=== PATIENT | female | born 1945 | race Caucasian/White ===

== ENCOUNTER → 2016-12-18 | Outpatient (REF) | payer MEDICARE ==
[~2016-12-18] MED LIST: /PANT40TA OR; ACET65TA OR; IBUP-1114 PO; LEVO25TA5 PO; OMEP20CA3 PO; PREV30TA OR; RELAFEN OR; SERT-141 PO; TRAZ50TA4 PO; VITA100072 PO; ZOLO50TA OR; [UNRECOGNIZED DRUG - CODE] PO
[2016-12-18 16:29] LABS: FREE T4 0.34 NG/DL (0.76-1.46)
== END ==
LOC: M LABDRAW1 15:20
PROVIDERS: ATTEND Internal Medicine Endocrinology, Diabetes & Metabolism
DX: E05.10 Thyrotoxicosis with toxic single thyroid nodule without thyrotoxic crisis or storm (principal)

== ENCOUNTER → 2017-02-09 | Outpatient (CLI) | payer MEDICARE ==
[~2017-02-09] MED LIST changes: -SERT-141 PO; +SERT50TA PO
[2017-02-09 18:10] LABS: FREE T4 1.5 NG/DL (0.76-1.46)
== END ==
LOC: M WUC 15:09
PROVIDERS: ATTEND Internal Medicine Endocrinology, Diabetes & Metabolism
DX: E89.0 Postprocedural hypothyroidism (principal)

== ENCOUNTER → 2017-03-17 | Outpatient (CLI) | payer MEDICARE ==
--- NOTE | 2017-03-17 17:16 | REP ---
PA and lateral chest: Comparisons are the PA and lateral chest dated 02/25/[address] of the abdomen and pelvis dated 01/01/2014 that includes the lower chest. There is a large right epicardial fat pad obscuring the right cardiac border, unchanged from all prior studies including the CT. The lung freedman are clear and unchanged. Cardiac size is normal. The jayden, mediastinum, and bony thorax are unremarkable. Impression: There are no acute cardiopulmonary findings. There is a large right epicardial fat pad. Signed by Gregg Yusuf MD 03/17/2017 05:07 P
== END ==
LOC: M WUC 16:28
PROVIDERS: ATTEND Physician Assistant
DX: J20.9 Acute bronchitis, unspecified (principal)

== ENCOUNTER → 2017-03-22 | Emergency (ER) | payer MEDICARE ==
[~2017-03-22] VITALS: Ht 157.5 cm; Wt 61.2 kg
[2017-03-22 12:56] VITALS: BP 131/78
== END | disposition left against medical advice (07) ==
LOC: M ED 13:33
DX: R05 Cough (principal); Z53.29 Procedure and treatment not carried out because of patient's decision for other reasons

== ENCOUNTER → 2017-04-11 | Outpatient (CLI) | payer MEDICARE ==
[2017-04-11 18:21] LABS: FREE T4 1.27 NG/DL (0.76-1.46)
== END ==
LOC: M WUC 15:03
PROVIDERS: ATTEND Physician Assistant Medical
DX: E89.0 Postprocedural hypothyroidism (principal)

== ENCOUNTER → 2017-06-26 | Outpatient (CLI) | payer MEDICARE ==
[~2017-06-26] MED LIST changes: +CYCL10TA PO; +D32000CA PO; +IBUP-1022 PO; +LEVO88TA3; +OMEP40CA2; +SERT-138; +TRAZ50TA11 PO; -TRAZ50TA4 PO; +XIID5DRO; -[UNRECOGNIZED DRUG - CODE] PO
[2017-06-26 19:36] LABS: FREE T4 1.06 NG/DL (0.76-1.46)
== END ==
LOC: M WUC 14:48
PROVIDERS: ATTEND Internal Medicine Endocrinology, Diabetes & Metabolism
DX: E89.0 Postprocedural hypothyroidism (principal)

== ENCOUNTER 2017-07-18 11:43 | Emergency (ER) | payer MEDICARE ==
[~2017-07-18] VITALS: Ht 160 cm; Wt 61.3 kg
[~2017-07-18 11:43] MED LIST changes: -CYCL10TA PO; -IBUP-1022 PO; -LEVO88TA3; -OMEP40CA2; -SERT-138; -XIID5DRO
[2017-07-18] MEDS ORDERED: OMEP40CA2 (11:51)
[2017-07-18] MEDS ORDERED: LEVO88TA3 (11:51)
[2017-07-18] MEDS ORDERED: XIID5DRO (11:51)
[2017-07-18] MEDS ORDERED: SERT-138 (11:51)
[2017-07-18] MEDS ORDERED: PERCOCET 5MG/325MG TAB PO ONE (14:45)
--- NOTE | 2017-07-18 15:15 | REP ---
CT Head without contrast HISTORY: Fall COMPARISON: None There is no intraparenchymal hemorrhage, acute infarct, mass or midline shift. The ventricular system and cortical sulci are dilated consistent with minimal volume loss. There is no extra cerebral collection. There is no fracture. The visualized sinuses are clear. IMPRESSION: Minimal volume loss. Signed by Nahum Tee MD 07/18/2017 03:07 P
--- NOTE | 2017-07-18 15:28 | REP ---
CT CERVICAL SPINE WITHOUT CONTRAST: HISTORY: Fall. There is no acute fracture or subluxation. Disc bulges are present at the C2-3 and C3-4 levels. Disc bulges with associated osteophyte formation are present at the C4-5 and C5-6 levels. There is minimal narrowing of the spinal canal. Uncinate process hypertrophy is present at the C3-4 through C5-6 levels. This produces minimal to mild narrowing of the neural foramina. The C4-5 and C5-6 intervertebral discs are decreased in height consistent with disc degeneration. IMPRESSION: 1. There is no acute fracture or subluxation. 2. There is cervical spondylosis at the C2-3 through C5-6 levels. Signed by Nahum Tee MD 07/18/2017 03:40 P
[2017-07-18] MEDS ORDERED: CYCL10TA PO (15:36)
[2017-07-18] MEDS ORDERED: IBUP-1022 PO (15:36)
--- NOTE | 2017-07-18 15:37 | REP ---
CT THORACIC SPINE WITHOUT CONTRAST: HISTORY: Fall. There is no acute fracture or subluxation. There is no definite disc bulge or herniation. The spinal canal and neural foramina are patent. The intervertebral discs are normal in height. A 2.5 cm hypodensity is present in the right lobe of the liver. A second hypodensity is only partly seen. These most likely represent cysts. IMPRESSION: 1. There is no acute fracture or subluxation. 2. There are two hypodensities in the liver that may represents cysts. Ultrasound may be helpful for further evaluation. Signed by Nahum Tee MD 07/18/2017 03:40 P
[2017-07-18 15:47] VITALS: BP 134/63
--- NOTE | 2017-07-21 10:25 | ED PDOC ---
Post-Departure Follow-Up lisa myers faxed formal report of ct t spine for fu Davida Harry MD Jul 21, 2017 10:25
== END 2017-07-18 15:57 | disposition home or self-care (01) ==
LOC: M ED 11:43
DX: S13.4XXA Sprain of ligaments of cervical spine, initial encounter (principal); W06.XXXA Fall from bed, initial encounter; Y92.099 Unspecified place in other non-institutional residence as the place of occurrence of the external cause; Y93.9 Activity, unspecified; Y99.9 Unspecified external cause status; M47.892 Other spondylosis, cervical region; K76.9 Liver disease, unspecified; Z79.899 Other long term (current) drug therapy; Z91.010 Allergy to peanuts; Z88.2 Allergy status to sulfonamides; Z88.8 Allergy status to other drugs, medicaments and biological substances

== ENCOUNTER → 2017-10-15 | Outpatient (CLI) | payer MEDICARE ==
[~2017-10-15] MED LIST changes: +CYCL10TA PO; +IBUP-1022 PO; +LEVO88TA3; +OMEP40CA2; +SERT-138; +XIID5DRO
[2017-10-15 17:17] LABS: ALBUMIN 3.8 GM/DL (3.2-5.2); ALBUMIN/GLOBULIN RATIO 1.36 (1.00-1.93); ALKALINE PHOSPHATASE 102 U/L (45-117); ALT/SGPT 17 U/L (12-78); ANION GAP 6 MEQ/L (8-16); AST/SGOT 13 U/L (7-37); BILIRUBIN,DIRECT 0.1 MG/DL (0.0-0.2); BILIRUBIN,TOTAL 0.4 MG/DL (0.2-1.0); BLOOD UREA NITROGEN 16 MG/DL (7-18); CALCIUM LEVEL 8.6 MG/DL (8.8-10.2); CARBON DIOXIDE LEVEL 30 MEQ/L (21-32); CHLORIDE LEVEL 106 MEQ/L (98-107); CREATININE FOR GFR 0.95 MG/DL (0.55-1.02); GLOMERULAR FILTRATION RATE > 60.0 (>39); GLUCOSE, FASTING 139 MG/DL (83-110); PHOSPHORUS LEVEL 3.2 MG/DL (2.5-4.9); POTASSIUM SERUM 3.6 MEQ/L (3.5-5.1); SODIUM LEVEL 142 MEQ/L (136-145); TOTAL PROTEIN 6.6 GM/DL (6.4-8.2)
[2017-10-15 17:25] LABS: MEAN CORPUSCULAR HGB CONC 36.9 g/dl (32.0-36.5); MEAN CORPUSCULAR VOLUME 92.2 fl (80.0-96.0); PLATELET COUNT, AUTOMATED 201 10^3/uL (150-450); RED CELL DISTRIBUTION WIDTH 14.2 % (11.5-14.5); WHITE BLOOD COUNT 6.5 10^3/uL (4.0-10.0)
== END ==
LOC: M WUC 14:12
PROVIDERS: ATTEND Podiatrist Foot & Ankle Surgery
DX: B35.1 Tinea unguium (principal); Z79.899 Other long term (current) drug therapy

== ENCOUNTER → 2017-11-20 | Outpatient (CLI) | payer MEDICARE ==
[2017-11-20 18:29] LABS: FREE T4 1.15 NG/DL (0.76-1.46)
== END ==
LOC: M WUC 13:57
PROVIDERS: ATTEND Nurse Practitioner Family
DX: E89.0 Postprocedural hypothyroidism (principal); B35.1 Tinea unguium; Z51.81 Encounter for therapeutic drug level monitoring; Z79.899 Other long term (current) drug therapy

== ENCOUNTER → 2017-11-20 | Outpatient (CLI) | payer MEDICARE ==
[2017-11-20 17:16] LABS: ALBUMIN 3.9 GM/DL (3.2-5.2); ALBUMIN/GLOBULIN RATIO 1.44 (1.00-1.93); ALKALINE PHOSPHATASE 104 U/L (45-117); ALT/SGPT 16 U/L (12-78); ANION GAP 5 MEQ/L (8-16); AST/SGOT 12 U/L (7-37); BILIRUBIN,DIRECT < 0.1 MG/DL (0.0-0.2); BILIRUBIN,TOTAL 0.4 MG/DL (0.2-1.0); BLOOD UREA NITROGEN 14 MG/DL (7-18); CALCIUM LEVEL 8.5 MG/DL (8.8-10.2); CARBON DIOXIDE LEVEL 31 MEQ/L (21-32); CHLORIDE LEVEL 108 MEQ/L (98-107); CREATININE FOR GFR 0.93 MG/DL (0.55-1.02); GLOMERULAR FILTRATION RATE > 60.0 (>39); GLUCOSE, FASTING 93 MG/DL (83-110); PHOSPHORUS LEVEL 3.5 MG/DL (2.5-4.9); POTASSIUM SERUM 3.8 MEQ/L (3.5-5.1); SODIUM LEVEL 144 MEQ/L (136-145); TOTAL PROTEIN 6.6 GM/DL (6.4-8.2)
[2017-11-20 18:09] LABS: MEAN CORPUSCULAR HEMOGLOBIN 28.4 pg (27.0-33.0); MEAN CORPUSCULAR HGB CONC 32.4 g/dl (32.0-36.5); MEAN CORPUSCULAR VOLUME 87.5 fl (80.0-96.0); PLATELET COUNT, AUTOMATED 192 10^3/uL (150-450); RED CELL DISTRIBUTION WIDTH 13.9 % (11.5-14.5)
[2017-11-20 18:11] LABS: WHITE BLOOD COUNT 6.5 10^3/uL (4.0-10.0)
== END ==
LOC: M WUC 13:54
PROVIDERS: ATTEND Podiatrist Foot & Ankle Surgery
DX: B35.1 Tinea unguium (principal); Z51.81 Encounter for therapeutic drug level monitoring; Z79.899 Other long term (current) drug therapy

== ENCOUNTER → 2018-01-24 | Outpatient (REF) | payer MEDICARE | LOC: M LAB REF 12:27 | DX: C44.519 Basal cell carcinoma of skin of other part of trunk (principal) | CPT/HCPCS: 88305 ==

== ENCOUNTER → 2018-03-07 | Outpatient (CLI) | payer MEDICARE ==
[2018-03-07 13:01] LABS: BASO % 0.5 % (0.0-1.0); EOS # 0.1 10^3/uL (0.0-0.50); EOS % 1.6 % (0.0-3.0); HEMATOCRIT 35.8 % (36.0-47.0); HEMOGLOBIN 13.4 g/dl (12.0-15.5); IMMATURE GRANULOCYTE % 0.3 % (0-3.0); LYMPH # 1.4 10^3/uL (1.5-4.5); LYMPH % 23.9 % (24.0-44.0); MEAN CORPUSCULAR HEMOGLOBIN 34.4 pg (27.0-33.0); MEAN CORPUSCULAR HGB CONC 37.4 g/dl (32.0-36.5); MEAN CORPUSCULAR VOLUME 91.8 fl (80.0-96.0); MONO # 0.5 10^3/uL (0.0-0.8); MONO % 7.8 % (0.0-5.0); NEUTROPHILS # 3.8 10^3/uL (1.8-7.7); NEUTROPHILS % 65.9 % (36.0-66.0); PLATELET COUNT, AUTOMATED 183 10^3/uL (150-450); WHITE BLOOD COUNT 5.8 10^3/uL (4.0-10.0)
[2018-03-07 13:23] LABS: VITAMIN B12 LEVEL > 2000 PG/ML (247-911)
[2018-03-07 13:30] LABS: ALBUMIN/GLOBULIN RATIO 1.29 (1.00-1.93); ALKALINE PHOSPHATASE 92 U/L (45-117); ALT/SGPT 16 U/L (12-78); ANION GAP 7 MEQ/L (8-16); AST/SGOT 11 U/L (7-37); BILIRUBIN,TOTAL 0.7 MG/DL (0.2-1.0); BLOOD UREA NITROGEN 16 MG/DL (7-18); CARBON DIOXIDE LEVEL 28 MEQ/L (21-32); CHLORIDE LEVEL 106 MEQ/L (98-107); CHOLESTEROL LEVEL 225 MG/DL (<200); CHOLESTEROL RISK RATIO 3.571 (<5); CREATININE FOR GFR 0.91 MG/DL (0.55-1.30); GLOMERULAR FILTRATION RATE > 60.0 (>39); GLUCOSE, FASTING 96 MG/DL (70-100); HDL CHOLESTEROL 63 MG/DL (>40); IRON (FE) 118 UG/DL (50-170); LDL CHOLESTEROL 142.6 MG/DL (<100); NON-HDL-C 162 MG/DL; POTASSIUM SERUM 4.2 MEQ/L (3.5-5.1); SODIUM LEVEL 141 MEQ/L (136-145); TOTAL PROTEIN 7.1 GM/DL (6.4-8.2); TRIGLYCERIDES LEVEL 97 MG/DL (<150)
== END ==
LOC: M WUC 09:36
DX: K21.9 Gastro-esophageal reflux disease without esophagitis (principal); D50.9 Iron deficiency anemia, unspecified; E53.8 Deficiency of other specified B group vitamins; Z13.220 Encounter for screening for lipoid disorders
CPT/HCPCS: 83540

== ENCOUNTER → 2018-05-22 | Outpatient (CLI) | payer MEDICARE ==
[2018-05-22 17:25] LABS: FREE T4 1.26 NG/DL (0.76-1.46)
[2018-05-22 17:25] LABS: THYROID STIMULATING HORMONE 0.083 uIU/ML (0.358-3.740)
== END ==
LOC: M WUC 15:37
DX: E89.0 Postprocedural hypothyroidism (principal)
CPT/HCPCS: 84443

== ENCOUNTER → 2018-09-11 | Outpatient (CLI) | payer MEDICARE ==
[2018-09-11 20:47] LABS: FREE T4 0.89 NG/DL (0.76-1.46)
== END ==
LOC: M WUC 16:13
DX: E89.0 Postprocedural hypothyroidism (principal)
CPT/HCPCS: 84443

== ENCOUNTER → 2019-01-15 | Outpatient (CLI) | payer MEDICARE ==
[~2019-01-15] MED LIST changes: +TRAZ-160 PO; -TRAZ50TA11 PO
[2019-01-15 17:35] LABS: FREE T4 1.27 NG/DL (0.76-1.46); THYROID STIMULATING HORMONE 0.384 uIU/ML (0.358-3.740)
== END ==
LOC: M WUC 14:20
PROVIDERS: ATTEND Nurse Practitioner Family
DX: E89.0 Postprocedural hypothyroidism (principal)

== ENCOUNTER → 2019-03-26 | Outpatient (REF) | payer MEDICARE ==
[~2019-03-26] MED LIST changes: -/PANT40TA OR; +PROT1TAB2 OR; +SERT-141 PO; -SERT50TA PO; +VITA100018 PO; -VITA100072 PO
[2019-03-26 21:27] LABS: ALBUMIN 4.2 GM/DL (3.2-5.2); ALT/SGPT 14 U/L (12-78); BILIRUBIN,TOTAL 0.5 MG/DL (0.2-1.0); BLOOD UREA NITROGEN 20 MG/DL (7-18); CALCIUM LEVEL 8.6 MG/DL (8.8-10.2); CARBON DIOXIDE LEVEL 29 MEQ/L (21-32); CHLORIDE LEVEL 106 MEQ/L (98-107); CREATININE FOR GFR 0.92 MG/DL (0.55-1.30); GLOMERULAR FILTRATION RATE > 60.0 (>39); GLUCOSE, FASTING 71 MG/DL (70-100); IRON (FE) 71 UG/DL (50-170); POTASSIUM SERUM 4.1 MEQ/L (3.5-5.1); SODIUM LEVEL 141 MEQ/L (136-145); TOTAL PROTEIN 6.6 GM/DL (6.4-8.2)
[2019-03-26 21:37] LABS: VITAMIN B12 LEVEL 739 PG/ML (247-911)
[2019-03-26 21:53] LABS: BASO # 0.1 10^3/uL (0.0-0.2); BASO % 0.8 % (0.0-1.0); EOS # 0.1 10^3/uL (0.0-0.50); EOS % 1.4 % (0.0-3.0); HEMATOCRIT 39.2 % (36.0-47.0); HEMOGLOBIN 12.5 g/dl (12.0-15.5); LYMPH # 1.8 10^3/uL (1.5-4.5); LYMPH % 24.3 % (24.0-44.0); MEAN CORPUSCULAR HEMOGLOBIN 27.9 pg (27.0-33.0); MEAN CORPUSCULAR HGB CONC 31.9 g/dl (32.0-36.5); MEAN CORPUSCULAR VOLUME 87.5 fl (80.0-96.0); MONO # 0.7 10^3/uL (0.0-0.8); MONO % 9.5 % (0.0-5.0); NEUTROPHILS # 4.7 10^3/uL (1.8-7.7); NEUTROPHILS % 63.9 % (36.0-66.0); PLATELET COUNT, AUTOMATED 191 10^3/uL (150-450); RED BLOOD COUNT 4.48 10^6/uL (4.00-5.40); WHITE BLOOD COUNT 7.3 10^3/uL (4.0-10.0)
== END ==
LOC: M WUC 20:09
PROVIDERS: ATTEND Nurse Practitioner Family
DX: D50.9 Iron deficiency anemia, unspecified (principal); E53.8 Deficiency of other specified B group vitamins; E03.9 Hypothyroidism, unspecified

== ENCOUNTER → 2019-06-25 | Outpatient (CLI) | payer MEDICARE ==
[~2019-06-25] MED LIST changes: +ACET500T15 PO; +LEVO75TA4 PO; -OMEP20CA3 PO; +OMEP20CA4 PO; -TRAZ-160 PO; +TRAZ-252 PO
--- NOTE | 2019-06-25 09:51 | ECGEPIP ---
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
[2019-06-25 11:44] LABS: FREE T4 1.23 NG/DL (0.76-1.46); THYROID STIMULATING HORMONE 0.342 uIU/ML (0.358-3.740)
== END ==
LOC: M LAB 09:21
PROVIDERS: ATTEND Internal Medicine Endocrinology, Diabetes & Metabolism
DX: E89.0 Postprocedural hypothyroidism (principal); M16.11 Unilateral primary osteoarthritis, right hip

== ENCOUNTER → 2019-06-25 | Outpatient (CLI) | payer MEDICARE ==
--- NOTE | 2019-06-25 11:00 | REP ---
Clinical: Preoperative assessment. Right hip arthroplasty. Comparison: 03/17/2017 . Technique: PA and lateral. Findings: The mediastinum and cardiac silhouette are normal. The lung freedman demonstrate stable chronic changes without acute consolidation, effusion, or pneumothorax. The skeletal structures are intact and normal. Impression: 1. No acute cardiopulmonary process. Electronically Signed by Aidan Fu MD 06/25/2019 10:15 A
[2019-06-25 11:32] LABS: INR 0.98; PROTHROMBIN TIME 12.7 SECONDS (11.8-14.0)
[2019-06-25 11:42] LABS: ALBUMIN 3.7 GM/DL (3.2-5.2); ALT/SGPT 14 U/L (12-78); BILIRUBIN,TOTAL 0.4 MG/DL (0.2-1.0); BLOOD UREA NITROGEN 14 MG/DL (7-18); CARBON DIOXIDE LEVEL 29 MEQ/L (21-32); CHLORIDE LEVEL 111 MEQ/L (98-107); CREATININE FOR GFR 0.86 MG/DL (0.55-1.30); GLOMERULAR FILTRATION RATE > 60.0 (>39); GLUCOSE, FASTING 86 MG/DL (70-100); POTASSIUM SERUM 4.2 MEQ/L (3.5-5.1); SODIUM LEVEL 145 MEQ/L (136-145); TOTAL PROTEIN 6.7 GM/DL (6.4-8.2)
[2019-06-25 12:05] LABS: HEMATOCRIT 38.8 % (36.0-47.0); HEMOGLOBIN 12.4 g/dl (12.0-15.5); MEAN CORPUSCULAR HEMOGLOBIN 28.1 pg (27.0-33.0); MEAN CORPUSCULAR VOLUME 87.8 fl (80.0-96.0); PLATELET COUNT, AUTOMATED 180 10^3/uL (150-450); RED BLOOD COUNT 4.42 10^6/uL (4.00-5.40); WHITE BLOOD COUNT 5.3 10^3/uL (4.0-10.0)
[2019-06-25 12:32] LABS: ERYTHROCYTE SEDIMENTATION RATE 30 mm/hr (0-30)
== END ==
LOC: M LAB 09:13
PROVIDERS: ATTEND Family Medicine
DX: M16.11 Unilateral primary osteoarthritis, right hip (principal)

== ENCOUNTER 2019-07-08 07:30 | Inpatient (IN) | payer MEDICARE ==
--- NOTE | 2019-07-03 16:21 | HPE ---
DATE OF ADMISSION: 07/08/2019 HISTORY OF PRESENT ILLNESS: This is a pleasant 73-year-old female with continuing symptomatic right hip osteoarthritis. She has consented for right total hip arthroplasty per Dr. Tate Rand. Medical optimization was performed by Dr. Horton on 07/02/2019, which we are awaiting his clearance documentation. The patient reports that she was cleared, although there was some information missing that Dr. Horton would normally like to see. She is going to try and coordinate the rest of that. She expressed concern about a right upper tooth which Dr. Manzanares evaluated for a filling that fell out. The patient denies any pain with the tooth, but was put on a antibiotic, namely amoxicillin 875 mg two by mouth three times a day. She otherwise feels well. Her x-rays were consistent with advanced osteoarthritis. ALLERGIES: SULFAs, COMPAZINE, cashews. CURRENT MEDICATIONS: Include: - amoxicillin 875 mg two by mouth three times a day - levothyroxine sodium 25 mcg - vitamin D3 super strength 2000 units - vitamin B12 100 mcg - aspirin 81 low-dose MEDICAL PROBLEM LIST: Includes: 1. Symptomatic right hip osteoarthritis. 2. Anxiety. 3. Hypercholesteremia. 4. Thyroid disease. 5. Depression. 6. Question of stroke. PAST SURGICAL HISTORY: Appendectomy, cholecystectomy, total hysterectomy, knee arthroscopy, and cataract removal. FAMILY HISTORY: Father - hypertension, hypercholesteremia, heart disease, cancer, and diabetes. SOCIAL HISTORY: She has never smoked and occasionally consumes alcohol. Denies illicit drugs. REVIEW OF SYSTEMS: Denies chest pain, shortness of breath, dyspnea on exertion, fever, chills, malaise, upper respiratory or urinary tract symptoms. She is denying any dental discomfort. LABORATORY DATA: Reviewed from 06/27/2019 show chloride level 111, anion gap 5, thyroid stimulating hormone 0.324. Via [facility] I was able to observe CBC which shows normalized white count at 5.3, RBC 4.42, hemoglobin 12.4, hematocrit this 38.8, MCV 87.8, MCH 28.1, MCHC 32.0. RDW 14.4, platelet 180. Sedimentation rate 30. EKG results per Dr. Froy Martinez were read sinus bradycardia, possible right ventricular conduction delay, possible anterior myocardial infarction probably old. Nonspecific T-wave abnormality. Those were the labs made available to me. Chest x-ray shows mediastinum and cardiac silhouette are normal. Lung freedman demonstrate stable chronic changes without acute consolidation, effusion or pneumothoraxes read by Dr. Fu. PHYSICAL EXAMINATION: Vital signs: Height 60 inches, weight 143.0, temperature 99.5, pulse 76, respiration 18, blood pressure 120/70. She is a pleasant, well-developed, well-nourished, 73-year-old female in no acute distress, alert, oriented times three. Mood and affect are appropriate. She is ambulating without overt antalgia, she is favoring her left side. Right hip range of motion is limited and irritable through range. Bilateral lower extremities are supple, soft, nontender. Skin is intact. Benign noninfectious looking. Bowels soft, nontender times four. Chest rises symmetrically. Regular rate and rhythm. Lungs clear to auscultation. Neck supple. Negative JVD or bruits. IMPRESSION: 1. Right hip symptomatic osteoarthritis. 2. The patient consented for right total hip arthroplasty per Dr. Tate Rand. 3. Medical optimization was performed by Dr. Horton on 07/02/2019, which we are awaiting his clearance note. 4. On-call the OR 2 grams IV Kefzol in OR. 5. SCD and TEDs in OR. 6. The patient reports being put on amoxicillin 875mg two by mouth three times a day per Dr. Manzanares. She denies dental pain. Patient states Dr. Manzanares okayed proceeding with procedure, but at some point she will need a root canal. Dr. Manzanares spoke with our surgical services coordinator stating that she was fine to move forward with the procedure. [facility]
[~2019-07-08] VITALS: Ht 160 cm; Wt 63.5 kg
[~2019-07-08 07:30] MED LIST changes: +OMEP1CAP73 PO; -OMEP20CA4 PO; -OMEP40CA2; +OMEP40CA97
[2019-07-08] MEDS ORDERED: LR 1,000 ML IV SCH ×3 (12:30→17:30)
[2019-07-08] MEDS ORDERED: MIDAZOLAM INJ 2 MG/2 ML VIAL (J2250) As Ordered ONE (12:36)
[2019-07-08] MEDS ORDERED: propofoL 200 MG/20 ML VIAL As Ordered ONE ×2 (12:37→16:20)
[2019-07-08] MEDS ORDERED: ONDANSETRON 4MG/2ML VIAL (J2405) As Ordered ONE (12:37)
[2019-07-08] MEDS ORDERED: LIDOCAINE 2% INJ 100 MG/5 ML SDV (FOR ANES.) As Ordered ONE (12:37)
[2019-07-08] MEDS ORDERED: fentaNYL 100 MCG/2 ML INJECTION (J3010) As Ordered ONE ×2 (12:37→17:04)
[2019-07-08] MEDS ORDERED: ceFAZolin SOD 2 GM in IV 1 EA IV ONE (13:00)
[2019-07-08] MEDS ORDERED: ACETAMINOPHEN 500 MG TAB PO ONE (13:00)
[2019-07-08] MEDS ORDERED: TRANEXAMIC ACID 100 MG/ML 10ML VIAL As Ordered ONE (14:00)
[2019-07-08] MEDS ORDERED: EPINEPHrine INJ 1 MG/ML 1ML VIAL As Ordered ONE (14:01)
[2019-07-08] MEDS ORDERED: ceFAZolin 1GM INJ (J0690 PER 500MG) As Ordered ONE (14:01)
[2019-07-08] MEDS ORDERED: BUPIVACAINE/DEXTROSE 0.75% 2 ML AMP As Ordered ONE (15:22)
[2019-07-08] MEDS ORDERED: ACETAMINOPHEN 1000MG 100ML IV BTL (OFIRMEV) (J0131 PER 10MG) As Ordered ONE (15:23)
[2019-07-08] MEDS ORDERED: ePHEDrine SULFATE 25 MG/5 ML(5MG/ML) SYRINGE As Ordered ONE (15:54)
[2019-07-08] MEDS: fentaNYL 100 MCG/2 ML INJECTION (J3010) IV PRN ×4 (17:10→18:00)
--- NOTE | 2019-07-08 17:12 | CR.PDOC ---
General Date of Consultation: Jul 08, 2019 Referring Provider: Graham Rand Attending Physician: ERASMO KING MD Consultation REASON FOR CONSULTATION/CHIEF COMPLAINT: Medical management. HISTORY OF PRESENT ILLNESS: This is 73 years old female with past medical history of right hip osteoarthritis, anxiety, hyperlipidemia, , hypothyroid, depression, had a right total hip arthroplasty done today and patient is being transferred to medical floor from recurrent room for further care including physical therapy. We'll been called for medical management of this secondary to multiple medical problems. ALLERGIES: Please see below. HOME MEDICATIONS: Please see below. PAST MEDICAL HISTORY: Right hip osteoarthritis, anxiety disorder, hyperlipidemia, hypothyroidism, depression, questionable CVA. PAST SURGICAL HISTORY: Appendectomy, cholecystectomy, total hysterectomy, knee arthroscopy and cataract removal FAMILY HISTORY: Father: , Hypertension, hyperlipidemia, heart disease, cancer and diabetes mellitus Mother: Negative Siblings: Negative Children: Negative Hereditary Diseases: Negative Unexpected deaths due to medical reasons: Negative SOCIAL HISTORY: Marital status and/or living arrangements: Lives alone. Nonsmoker Children: Not applicable Employment: Applicable Tobacco use:Never smoked ETOH: , Occasional Illicit drug use: Never IV drug use: Never Other relevant social factors: None REVIEW OF SYSTEMS: CONSTITUTIONAL: Normal. HEENT: No eye, ear pain. CARDIOVASCULAR: No chest pain, palpitation. RESPIRATORY: No cough or shortness of breath. GENITOURINARY: Or dysuria, polyuria or frequency. MUSCULOSKELETAL: No muscle aches or pains or limitation of movements. GASTROINTESTINAL: , No nausea, vomiting, diarrhea. SKIN: Rash, allergy. NEUROLOGICAL: . No weakness. No Arrington's palsy. No tenderness. PSYCHIATRIC: No anxiety, no depression. ENDOCRINE: History of hypothyroidism. HEMATOLOGIC/LYMPHATIC: No history of anemia probably leukemia. ALLERGIC/IMMUNOLOGIC: Allergies. PHYSICAL EXAMINATION: VITAL SIGNS: Please see below. GENERAL APPEARANCE: . HEENT: PERRLA. Extraocular muscles intact. RESPIRATORY: Clear to A&P. CARDIOVASCULAR: S1, S2, regular. ABDOMEN: Benign]. EXTREMITIES: Clubbing, cyanosis, edema. Dressing at the surgical site. NEUROLOGICAL: No motor or focal sensory deficit. PSYCHIATRIC: Normal. LABORATORY DATA: Please see below. ASSESSMENT/PLAN: 1. Right total hip arthroplasty 3.Anxiety disorde r, 4.hyperlipidemia 5. Hypo thyroidism Patient is status post right hip arthroplasty, tolerated the procedure very well and being transferred from recovery room to medical floor Pain management and DVT prophylaxis as per surgical recommendations PT evaluation in a.m. Continue all home medications CBC, CMP and TSH in a.m. Activity as per physical therapy Diet regular Thank you for calling this consult and will gladly follow up with you Vital Signs/I&O Vital Signs Date Time Temp Pulse Resp B/P (MAP) Pulse Ox O2 Delivery O2 Flow Rate FiO2 07/08/19 12:22 64 20 137/64 (88) 96 Allergies Coded Allergies: prochlorperazine (Verified Allergy, Severe, jaw displaced, swelling, 06/09/19) Cashew (Verified Allergy, Intermediate, BLISTERS, 06/09/19) Sulfa (Sulfonamide Antibiotics) (Verified Allergy, Intermediate, hives, 06/09/19) Home Medications Scheduled Cyanocobalamin (Vitamin B-12) (Vitamin B-12) 1,000 Mcg Tab, 1,000 MCG PO DAILY, (Reported) Levothyroxine Sodium (Levothyroxine Sodium) 75 Mcg Tablet, 75 MCG PO DAILY, (Reported) Scheduled PRN Acetaminophen (Acetaminophen) 500 Mg Tablet, 1,000 MG PO PRN PRN for PAIN, (Reported) Ibuprofen (Ibuprofen) 400 Mg Tab, 400 MG PO Q6HP PRN for PAIN, (Reported) ERASMO KING MD Jul 08, 2019 17:12
[2019-07-08] MEDS ORDERED: HYDROMORPHONE HCL 0.5 MG/ 0.5 ML SYRINGE (J1170 PER 1) IV PRN ×3 (17:15→17:30)
[2019-07-08] MEDS ORDERED: METOCLOPRAMIDE INJ 10MG/2ML VIAL (J2765) IV PRN (17:15)
[2019-07-08] MEDS ORDERED: oxyCODONE 5MG TAB PO PRN (17:15)
[2019-07-08] MEDS ORDERED: ACETAMINOPHEN TAB 650MG DOSE (2X325MG) PO PRN (17:30)
[2019-07-08] MEDS ORDERED: FLEET ENEMA PR PRN (17:30)
--- NOTE | 2019-07-08 17:34 | REP ---
PORTABLE RIGHT HIP: 07/08/2019. Clinical history: Status post right total hip arthroplasty. Findings: Two-views show a right total hip arthroplasty with the skin kaleb laterally. The acetabular cup and femoral head components align normally. The femoral stem appears tightly applied to the [place] femoral shaft. Bones grossly intact. Some postoperative subcutaneous air noted a normal finding. Impression: 1. Status post right total hip arthroplasty with the two components of the prosthesis well-aligned in relationship to the [place] bone and each other. Electronically Signed by Austin Sam MD 07/08/2019 05:25 P
[2019-07-08 20:00] VITALS: BP 103/67
[2019-07-08] MEDS ORDERED: CALCIUM CARBONATE 500 MG CHEW U/D PO PRN (20:00)
[2019-07-08] MEDS ORDERED: FAMOTIDINE 20 MG TAB PO PRN (20:00)
[2019-07-08 20:35] VITALS: BP 165/78
[2019-07-08] MEDS: ceFAZolin SOD 2 GM in IV 1 EA IV SCH (21:21)
[2019-07-08] MEDS ORDERED: PERCOCET 5MG/325MG TAB PO PRN (21:30)
[2019-07-08] MEDS ORDERED: CYCLOBENZAPRINE 5MG TABLET PO PRN (21:30)
[2019-07-08 21:35] VITALS: BP 127/61
[2019-07-08] MEDS: ONDANSETRON 4MG/2ML VIAL (J2405) IV PRN (21:54)
[2019-07-08 22:35] VITALS: BP 126/60
[2019-07-08 23:29] VITALS: BP 126/60
[2019-07-08 23:35] VITALS: BP 126/60
[2019-07-09 00:38] VITALS: BP 127/62
[2019-07-09] MEDS: PERCOCET 5MG/325MG TAB PO PRN ×2 (01:26→06:21)
[2019-07-09] MEDS: ONDANSETRON 4MG/2ML VIAL (J2405) IV PRN ×2 (01:50→06:21)
[2019-07-09] MEDS: ceFAZolin SOD 2 GM in IV 1 EA IV SCH ×2 (03:56→09:26)
[2019-07-09 04:00] VITALS: BP 131/66
[2019-07-09 06:03] LABS: BASO % 0.3 % (0.0-1.0); EOS % 0.1 % (0.0-3.0); HEMATOCRIT 31.9 % (36.0-47.0); HEMOGLOBIN 10.4 g/dl (12.0-15.5); LYMPH # 0.5 10^3/uL (1.5-4.5); MEAN CORPUSCULAR HEMOGLOBIN 28.7 pg (27.0-33.0); MEAN CORPUSCULAR HGB CONC 32.6 g/dl (32.0-36.5); MEAN CORPUSCULAR VOLUME 88.1 fl (80.0-96.0); MONO # 0.6 10^3/uL (0.0-0.8); MONO % 6.8 % (0.0-5.0); NEUTROPHILS # 8.2 10^3/uL (1.8-7.7); NEUTROPHILS % 87.5 % (36.0-66.0); PLATELET COUNT, AUTOMATED 170 10^3/uL (150-450); RED BLOOD COUNT 3.62 10^6/uL (4.00-5.40); WHITE BLOOD COUNT 9.3 10^3/uL (4.0-10.0)
[2019-07-09 06:09] LABS: INR 1.12; PROTHROMBIN TIME 14.1 SECONDS (11.8-14.0)
[2019-07-09] MEDS ORDERED: traMADol 50 MG TAB PO PRN (07:15)
[2019-07-09] MEDS ORDERED: METOCLOPRAMIDE 5 MG TAB PO SCH (07:30)
[2019-07-09 07:41] LABS: ALBUMIN 2.9 GM/DL (3.2-5.2); BILIRUBIN,TOTAL 0.5 MG/DL (0.2-1.0); CALCIUM LEVEL 8.3 MG/DL (8.8-10.2); CREATININE FOR GFR 1.05 MG/DL (0.55-1.30); GLOMERULAR FILTRATION RATE 54.5 (>39); POTASSIUM SERUM 3.5 MEQ/L (3.5-5.1); THYROID STIMULATING HORMONE 0.135 uIU/ML (0.358-3.740); TOTAL PROTEIN 5.8 GM/DL (6.4-8.2)
[2019-07-09 08:35] VITALS: BP 102/56
[2019-07-09] MEDS ORDERED: RIVAROXABAN 10 MG TAB (XARELTO) PO SCH (09:00)
[2019-07-09] MEDS ORDERED: MORPHINE 15 MG SA TAB PO SCH (09:00)
[2019-07-09] MEDS: ACETAMINOPHEN 500 MG TAB PO SCH ×3 (09:25→21:16)
[2019-07-09] MEDS: MOM 30ML SUSPENSION UDC PO SCH (09:25)
[2019-07-09] MEDS: MIRALAX *UNIT DOSE* 17GM PACKET PO SCH (09:26)
[2019-07-09 09:44] VITALS: BP 102/56
--- NOTE | 2019-07-09 12:30 | IPNPDOC ---
Subjective Date Seen The patient was seen on 07/09/19. Subjective Chief Complaint/HPI Patient is somnolent but responds to vocal stimuli and answers questions properly but drifts back to sleep, at bedside General: Reports: ROS Unobtainable Objective Physical Examination General Exam: Positive: Cooperative, Other (somnolent) Eye Exam: Positive: Conjunctiva & lids normal ENT Exam: Positive: Atraumatic, Mucous membr. moist/pink Neck Exam: Positive: Supple Chest Exam: Positive: Clear to auscultation, Normal air movement Heart Exam: Positive: Rate Normal, Normal S1, Normal S2 Abdomen Exam: Positive: Normal bowel sounds, Soft Neuro Exam: Positive: Strength at 5/5 X4 ext, Sensation Intact Assessment /Plan Problems (1) Arthritis pain, hip Status: Acute Problem Text: Status post right hip arthroplasty Patient somnolent secondary to pain medications, so that has been adjusted Physical therapy, pain management, DVT prophylaxis as per orthopedic (2) Hypothyroid Status: Chronic Problem Text: Continue home meds Plan/VTE VTE Prophylaxis Ordered?: Yes VS, I&O, 24H, [facility] Vital Signs/I&O Vital Signs Date Time Temp Pulse Resp B/P (MAP) Pulse Ox O2 Delivery O2 Flow Rate FiO2 07/09/19 06:21 16 07/09/19 04:00 99.0 83 131/66 (87) 95 I&O- Last 24 Hours up to 6 AM 07/09/19 05:59 Intake Total 1710 ml Output Total 750 ml Balance 960 ml Laboratory Data 24H LABS Laboratory Tests 2 07/09/19 05:21: Immature Granulocyte % (Auto) 0.3, White Blood Count 9.3, Red Blood Count 3.62L, Hemoglobin 10.4L, Hematocrit 31.9L, Mean Corpuscular Volume 88.1, Mean Corpuscular Hemoglobin 28.7, Mean Corpuscular Hemoglobin Concent 32.6, Red Cell Distribution Width 14.2, Platelet Count 170, Neutrophils (%) (Auto) 87.5H, Lymphocytes (%) (Auto) 5.0L, Monocytes (%) (Auto) 6.8H, Eosinophils (%) (Auto) 0.1, Basophils (%) (Auto) 0.3, Neutrophils # (Auto) 8.2H, Lymphocytes # (Auto) 0.5L, Monocytes # (Auto) 0.6, Eosinophils # (Auto) 0.0, Basophils # (Auto) 0.0, Nucleated Red Blood Cells % (auto) 0.0, Prothrombin Time 14.1H, Prothromb Time International Ratio 1.12, Anion Gap 7L, Glomerular Filtration Rate 54.5, Blood Urea Nitrogen 14, Creatinine 1.05, Sodium Level 141, Potassium Level 3.5, Chloride Level 107, Carbon Dioxide Level 27, Calcium Level 8.3L, Aspartate Amino Transf (AST/SGOT) 346H, Alanine Aminotransferase (ALT/SGPT) 297H, Alkaline Phosphatase 89, Total Bilirubin 0.5, Total Protein 5.8L, Albumin 2.9L, Albumin/Globulin Ratio 1.00, Thyroid Stimulating Hormone (TSH) 0.135L CBC/BMP Laboratory Tests 07/09/19 05:21 Red Blood Count 3.62 L, Mean Corpuscular Volume 88.1, Mean Corpuscular Hemoglobin 28.7, Mean Corpuscular Hemoglobin Concent 32.6, Red Cell Distribution Width 14.2, Neutrophils (%) (Auto) 87.5 H, Lymphocytes (%) (Auto) 5.0 L, Monocytes (%) (Auto) 6.8 H, Eosinophils (%) (Auto) 0.1, Basophils (%) (Auto) 0.3, Neutrophils # (Auto) 8.2 H, Lymphocytes # (Auto) 0.5 L, Monocytes # (Auto) 0.6, Eosinophils # (Auto) 0.0, Basophils # (Auto) 0.0, Calcium Level 8.3 L, Aspartate Amino Transf (AST/SGOT) 346 H, Alanine Aminotransferase (ALT/SGPT) 297 H, Alkaline Phosphatase 89, Total Bilirubin 0.5, Total Protein 5.8 L, Albumin 2.9 L ERASMO KING MD Jul 09, 2019 12:30
[2019-07-09 14:00] VITALS: BP 133/64
[2019-07-09] MEDS: RIVAROXABAN 10 MG TAB (XARELTO) PO SCH (17:27)
[2019-07-09 22:00] VITALS: BP 106/51
[2019-07-10 06:00] VITALS: BP 125/62
[2019-07-10] MEDS: ACETAMINOPHEN 500 MG TAB PO SCH ×3 (06:45→21:29)
[2019-07-10] MEDS: LEVOTHYROXINE 75MCG TABLET (0.075MG) PO SCH (06:45)
[2019-07-10 07:59] LABS: BLOOD UREA NITROGEN 16 MG/DL (7-18); CALCIUM LEVEL 8.3 MG/DL (8.8-10.2); CARBON DIOXIDE LEVEL 28 MEQ/L (21-32); CHLORIDE LEVEL 107 MEQ/L (98-107); CREATININE FOR GFR 0.87 MG/DL (0.55-1.30); GLOMERULAR FILTRATION RATE > 60.0 (>39); GLUCOSE, FASTING 121 MG/DL (70-100); POTASSIUM SERUM 3.5 MEQ/L (3.5-5.1); SODIUM LEVEL 141 MEQ/L (136-145)
--- NOTE | 2019-07-10 09:32 | RO ---
DATE OF PROCEDURE: 07/08/2019 PREPROCEDURE DIAGNOSIS: Right hip arthritis. POSTPROCEDURE DIAGNOSIS: Right hip arthritis. PROCEDURE: Right total hip arthroplasty using size 52 Gription Sector cup with a 32 mm acetabular neutral liner and a size #5 standard offset [place] stem with a plus 5 neck and a 32 mm head. Prosthesis made by [employer]. SURGEON: Dr. Graham Rand REEL AND REWINDER OPERATOR: Ms. Kamala Estrada. ANESTHESIA: Spinal. COMPLICATIONS: None. ESTIMATED BLOOD LOSS: 200 mL. SPECIMENS: Femoral head. DESCRIPTION OF PROCEDURE: Antibiotics were given intravenously preoperatively and then a successful spinal anesthetic was induced. Patient was placed in lateral decubitus position right hip upper most. The right hip area was then carefully prepped and draped in the usual sterile fashion. After appropriate time out, a longitudinal incision was made for a direct lateral approach to the hip. Bovie cautery was used to coagulate crossing vessels down to the tensor fascia. Tensor fascia was divided in line with the skin incision and we split the gluteus medius anterior one-third, posterior two-third junction to split the underlying gluteus minimus hip capsule, carefully dissected off the proximal femur as we actually rotated the hip and dislocated it and placed the leg in a leg bag anteriorly. Pyriformis fossa was identified, a starter reamer placed followed by the canal finding reamer, then the lateralizing reamer, then we reamed up to a size 5. Femoral neck osteotomy performed using the guide. We then broached up to a size 5. Calcar planar was used. We then exposed the acetabulum and performed a labral excision 360 degrees then began reaming beginning at 47 mm diameter reamer and increased in 1 mm increments to 51. A 52 trial seemed to fit appropriately thus the real cup was asked for. We copiously irrigated and then installed the real 52 Gription cup and then used the external alignment gig to set our version in abduction. We irrigated and placed the real liner making sure it seated fully. We then irrigated out the femoral canal and placed the trial #5 broach once again, started templating with a 1.5 neck x 32 ball and then had excellent stability to flexion, internal rotation and extension external rotation but if she needed a little bit of length, I trialed the plus 5 and had appropriate soft tissue tension. Thus we went with that size neck length. We removed all the trial components, irrigated again, placed the real #5 standard offset stem, dried the trunnion, placed the 32 ball, irrigated the hip and reduced it, then began closing the gluteus minimus and anterior capsule back anatomically with interrupted #1 PDS sutures, includes the gluteus medius back anatomically with interrupted #1 PDS sutures, then the tensor fascia was closed with combination #1 PDS sutures and a running #1 Stratafix. I irrigated between layers then closed the deep subdermal tissues with interrupted #2-0 PDS sutures, skin was closed with kaleb covered by an Optifoam and dry sterile bulky dressing. She was then turned supine and then transferred to the recovery room in stable condition. There were no intraoperative complications. Ms. Kamala Estrada, my assistant store manager, was critical to the success of this difficult surgery by helping to manipulate the soft tissues, manipulate the leg in and out of the leg bag, help to dislocate and relocate it several times while I did trial reductions, help to close to wound, help to prepare the patient, amongst many other tasks to allow me to perform the operation smoothly, efficiently and safely. GERMÁN
[2019-07-10 09:48] LABS: HEMATOCRIT 31.4 % (36.0-47.0); HEMOGLOBIN 10.1 g/dl (12.0-15.5); MEAN CORPUSCULAR HEMOGLOBIN 28.9 pg (27.0-33.0); MEAN CORPUSCULAR HGB CONC 32.2 g/dl (32.0-36.5); PLATELET COUNT, AUTOMATED 159 10^3/uL (150-450); RED BLOOD COUNT 3.49 10^6/uL (4.00-5.40); WHITE BLOOD COUNT 11.9 10^3/uL (4.0-10.0)
[2019-07-10] MEDS: MOM 30ML SUSPENSION UDC PO SCH (09:50)
[2019-07-10] MEDS: MIRALAX *UNIT DOSE* 17GM PACKET PO SCH (09:50)
--- NOTE | 2019-07-10 11:27 | IPNPDOC ---
Subjective Date Seen The patient was seen on 07/10/19. Subjective Chief Complaint/HPI Patient is much more alert, awake, in no distress. Offers no new complaints. Does not remember me visiting her yesterday, and RN at the bedside General: Denies: ROS Unobtainable, Chills, Night Sweats, Fatigue, Malaise, Normal Appetite, Other Symptoms Constitutional: Denies: Chills, Fever, Malaise, Night Sweats, Weakness, Fatigue, Weight Loss, Lethargy, Other Eyes: Denies: Pain, Vision change, Conjunctivae inflammation, Eyelid inflammation, Redness, Other ENT: Denies: Head Aches, Ear Pain, Dysphagia, Sinus Congestion, Post Nasal Drip, Sore Throat, Epistaxis, Other Symptoms Skin: Denies: Rash, Lesions, Jaundice, Bruising, Itching, Dry, Breakdown, Nail Changes, Other Pulmonary: Denies: Dyspnea, Cough, Pleuritic Chest Pain, Other Symptoms Cardiovascular: Denies: Chest Pain, Palpitations, Orthopnea, Paroxysmal Noc. Dyspnea, Edema, Lt Headedness, Other Symptoms Gastrointestinal: Denies: Nausea, Vomiting, Abdominal Pain, Diarrhea, Constipation, Melena, Hematochezia, Other Symptoms Musculoskeletal: Denies: Neck Pain, Back Pain, Shoulder Pain, Arm Pain, Hand Pain, Leg Pain, Foot Pain, Joint Pain, Muscle Pain, Spasms, Other Symptoms Neurological: Denies: Weakness, Numbness, Incoordination, Change in speech, Confusion, Seizures, Other Symptoms Psych: Denies: Mood Normal, Anxiety, Depression, Memory Issues, Thoughts of Self Harm, Anger, Thoughts of Harming Other, Other Psych Objective Physical Examination General Exam: Positive: Cooperative, Other (somnolent) Eye Exam: Positive: Conjunctiva & lids normal ENT Exam: Positive: Atraumatic, Mucous membr. moist/pink Neck Exam: Positive: Supple Chest Exam: Positive: Clear to auscultation, Normal air movement Heart Exam: Positive: Rate Normal, Normal S1, Normal S2 Abdomen Exam: Positive: Normal bowel sounds, Soft Neuro Exam: Positive: Strength at 5/5 X4 ext, Sensation Intact Assessment /Plan Problems (1) Arthritis pain, hip Status: Acute Problem Text: Status post right hip arthroplasty Patient somnolent secondary to pain medications, so that has been adjusted Physical therapy, pain management, DVT prophylaxis as per orthopedic Discharge as per orthopedic (2) Hypothyroid Status: Chronic Problem Text: Continue home meds Plan/VTE VTE Prophylaxis Ordered?: Yes VS, I&O, 24H, Fishbone Vital Signs/I&O Vital Signs Date Time Temp Pulse Resp B/P (MAP) Pulse Ox O2 Delivery O2 Flow Rate FiO2 07/10/19 06:00 100.2 92 16 125/62 (83) 92 I&O- Last 24 Hours up to 6 AM 07/10/19 06:00 Intake Total 1110 ml Output Total 700 ml Balance 410 ml Laboratory Data 24H LABS Laboratory Tests 2 07/10/19 05:21: Nucleated Red Blood Cells % (auto) 0.0, Anion Gap 6L, Glomerular Filtration Rate > 60.0, Blood Urea Nitrogen 16, Creatinine 0.87, Sodium Level 141, Potassium Level 3.5, Chloride Level 107, Carbon Dioxide Level 28, Calcium Level 8.3L CBC/BMP Laboratory Tests 07/10/19 05:21 Red Blood Count 3.49 L, Mean Corpuscular Volume 90.0, Mean Corpuscular Hemoglob in 28.9, Mean Corpuscular Hemoglobin Concent 32.2, Red Cell Distribution Width 14.6 H, Calcium Level 8.3 L ERASMO KING MD Jul 10, 2019 11:27
[2019-07-10 14:00] VITALS: BP 125/62
[2019-07-10] MEDS: RIVAROXABAN 10 MG TAB (XARELTO) PO SCH (17:30)
[2019-07-10 21:31] VITALS: BP 122/62
[2019-07-11] MEDS: LEVOTHYROXINE 75MCG TABLET (0.075MG) PO SCH (05:49)
[2019-07-11] MEDS: ACETAMINOPHEN 500 MG TAB PO SCH (05:49)
[2019-07-11 06:14] VITALS: BP 122/62
[2019-07-11] MEDS ORDERED: TRAM50TA2 PO (06:31)
[2019-07-11] MEDS ORDERED: XARE10TA PO (06:31)
[2019-07-11 08:08] LABS: HEMATOCRIT 28.8 % (36.0-47.0); HEMOGLOBIN 9.3 g/dl (12.0-15.5); MEAN CORPUSCULAR HEMOGLOBIN 27.8 pg (27.0-33.0); MEAN CORPUSCULAR HGB CONC 32.3 g/dl (32.0-36.5); MEAN CORPUSCULAR VOLUME 86.2 fl (80.0-96.0); PLATELET COUNT, AUTOMATED 164 10^3/uL (150-450); RED BLOOD COUNT 3.34 10^6/uL (4.00-5.40); WHITE BLOOD COUNT 10.6 10^3/uL (4.0-10.0)
[2019-07-11 08:24] LABS: BLOOD UREA NITROGEN 13 MG/DL (7-18); CALCIUM LEVEL 8.1 MG/DL (8.8-10.2); CARBON DIOXIDE LEVEL 28 MEQ/L (21-32); CHLORIDE LEVEL 106 MEQ/L (98-107); CREATININE FOR GFR 0.71 MG/DL (0.55-1.30); GLOMERULAR FILTRATION RATE > 60.0 (>39); GLUCOSE, FASTING 119 MG/DL (70-100); POTASSIUM SERUM 3.6 MEQ/L (3.5-5.1); SODIUM LEVEL 139 MEQ/L (136-145)
[2019-07-11] MEDS: MOM 30ML SUSPENSION UDC PO SCH (09:00)
[2019-07-11] MEDS: MIRALAX *UNIT DOSE* 17GM PACKET PO SCH (09:53)
--- NOTE | 2019-07-11 10:04 | IPNPDOC ---
Subjective Date Seen The patient was seen on 07/11/19. Subjective Chief Complaint/HPI Patient doing very well today. Sitting in chair General: Denies: ROS Unobtainable, Chills, Night Sweats, Fatigue, Malaise, Normal Appetite, Other Symptoms Constitutional: Denies: Chills, Fever, Malaise, Night Sweats, Weakness, Fatigue, Weight Loss, Lethargy, Other Eyes: Denies: Pain, Vision change, Conjunctivae inflammation, Eyelid inflammation, Redness, Other ENT: Denies: Head Aches, Ear Pain, Dysphagia, Sinus Congestion, Post Nasal Drip, Sore Throat, Epistaxis, Other Symptoms Skin: Denies: Rash, Lesions, Jaundice, Bruising, Itching, Dry, Breakdown, Nail Changes, Other Cardiovascular: Denies: Chest Pain, Palpitations, Orthopnea, Paroxysmal Noc. Dyspnea, Edema, Lt Headedness, Other Symptoms Gastrointestinal: Denies: Nausea, Vomiting, Abdominal Pain, Diarrhea, Constipation, Melena, Hematochezia, Other Symptoms Musculoskeletal: Denies: Neck Pain, Back Pain, Shoulder Pain, Arm Pain, Hand Pain, Leg Pain, Foot Pain, Joint Pain, Muscle Pain, Spasms, Other Symptoms Neurological: Denies: Weakness, Numbness, Incoordination, Change in speech, Confusion, Seizures, Other Symptoms Psych: Denies: Mood Normal, Anxiety, Depression, Memory Issues, Thoughts of Self Harm, Anger, Thoughts of Harming Other, Other Psych Objective Physical Examination General Exam: Positive: Cooperative, Other (somnolent) Eye Exam: Positive: Conjunctiva & lids normal ENT Exam: Positive: Atraumatic, Mucous membr. moist/pink Neck Exam: Positive: Supple Chest Exam: Positive: Clear to auscultation, Normal air movement Heart Exam: Positive: Rate Normal, Normal S1, Normal S2 Abdomen Exam: Positive: Normal bowel sounds, Soft Neuro Exam: Positive: Strength at 5/5 X4 ext, Sensation Intact Assessment /Plan Problems (1) Arthritis pain, hip Status: Acute Problem Text: Status post right hip arthroplasty Physical therapy in process Patient is ready to be discharged home today as per orthopedic Further physical therapy at home (2) Hypothyroid Status: Chronic Problem Text: Continue home meds Plan/VTE VTE Prophylaxis Ordered?: Yes VS, I&O, 24H, Fishbone Vital Signs/I&O Vital Signs Date Time Temp Pulse Resp B/P (MAP) Pulse Ox O2 Delivery O2 Flow Rate FiO2 07/11/19 06:14 99.4 90 17 122/62 (82) 92 I&O- Last 24 Hours up to 6 AM 07/11/19 06:00 Intake Total 900 ml Output Total 0 ml Balance 900 ml Laboratory Data 24H LABS Laboratory Tests 2 07/11/19 07:46: Nucleated Red Blood Cells % (auto) 0.0, Anion Gap 5L, Glomerular Filtration Rate > 60.0, Blood Urea Nitrogen 13, Creatinine 0.71, Sodium Level 139, Potassium Level 3.6, Chloride Level 106, Carbon Dioxide Level 28, Calcium Level 8.1L CBC/BMP Laboratory Tests 07/11/19 07:46 Red Blood Count 3.34 L, Mean Corpuscular Volume 86.2, Mean Corpuscular Hemoglobin 27.8, Mean Corpuscular Hemoglobin Concent 32.3, Red Cell Distribution Width 14.6 H, Calcium Level 8.1 L ERASMO KING MD Jul 11, 2019 10:04
--- NOTE | 2019-07-16 18:21 | DSES ---
DATE OF ADMISSION: 07/08/2019 DATE OF DISCHARGE: 07/11/2019 ADMISSION DIAGNOSIS: Osteoarthritis, right hip. OTHER DIAGNOSES: 1. Anxiety. 2. Hypercholesterolemia. 3. Thyroid disease. 4. Depression. 5. Possible history of stroke. DISCHARGE DIAGNOSIS: Osteoarthritis, right hip, status post right total hip arthroplasty. OPERATION PERFORMED: Right total hip arthroplasty. HISTORY: This is a pleasant 73-year-old female patient with progressively worsening right hip pain and stiffness who failed to improve with conservative management. She was admitted for elective hip replacement on the right side. HOSPITAL COURSE: The patient was admitted on the day of surgery and underwent a right total hip arthroplasty, which was uneventful. She did well on the postoperative period, and her hospital course was without complications. She was up with physical therapy per their protocol, and pain was controlled on the day of discharge. She was doing well, weightbearing as tolerated on the right lower extremity. She will follow with deep vein thrombosis (DVT) prophylaxis per protocol. She will resume her preoperative medications and diet as well as oral pain medications for pain control. She was given instructions to include, but not limited to, wound monitoring and activity limitations. She will followup in our office in 10-14 days for surgical followup. Please refer to the medical record for further details.
== END 2019-07-11 10:25 | disposition home or self-care (01) | DRG 470 ==
LOC: M OR 11:54 → M MS5PR 19:57
PROVIDERS: ADMIT Orthopaedic Surgery; ATTEND Orthopaedic Surgery
PROC: 0SR904A Replacement of Right Hip Joint with Ceramic on Polyethylene Synthetic Substitute, Uncemented, Open Approach (ICD-10-PCS; principal; 2019-07-08 15:10)
DX: M16.11 Unilateral primary osteoarthritis, right hip (principal); Z79.899 Other long term (current) drug therapy; F41.9 Anxiety disorder, unspecified; E78.00 Pure hypercholesterolemia, unspecified; F32.9 Major depressive disorder, single episode, unspecified; Z79.82 Long term (current) use of aspirin; E78.5 Hyperlipidemia, unspecified; E03.9 Hypothyroidism, unspecified; Z88.2 Allergy status to sulfonamides; Z88.8 Allergy status to other drugs, medicaments and biological substances; Z91.040 Latex allergy status; K21.9 Gastro-esophageal reflux disease without esophagitis; K44.9 Diaphragmatic hernia without obstruction or gangrene; K57.30 Diverticulosis of large intestine without perforation or abscess without bleeding

== ENCOUNTER 2019-07-23 11:35 | Inpatient (IN) | payer MEDICARE ==
[~2019-07-23] VITALS: Ht 157.5 cm; Wt 61.7 kg
[~2019-07-23 11:35] MED LIST changes: +TRAM50TA2 PO; +XARE10TA PO
[2019-07-23] MEDS ORDERED: BAYE325T12 PO (11:53)
[2019-07-23] MEDS ORDERED: melatonin PO (11:54)
[2019-07-23] MEDS ORDERED: NS 1,000 ML IV SCH (12:24)
[2019-07-23] MEDS ORDERED: ASPIRIN 81 MG CHEW TABLET PO ONE (12:30)
[2019-07-23 13:13] LABS: BASO # 0.1 10^3/uL (0.0-0.2); BASO % 0.7 % (0.0-1.0); EOS # 0.1 10^3/uL (0.0-0.50); EOS % 0.8 % (0.0-3.0); HEMOGLOBIN 10.7 g/dl (12.0-15.5); LYMPH # 1.6 10^3/uL (1.5-4.5); LYMPH % 15.4 % (24.0-44.0); MEAN CORPUSCULAR HEMOGLOBIN 28.6 pg (27.0-33.0); MEAN CORPUSCULAR HGB CONC 32.4 g/dl (32.0-36.5); MEAN CORPUSCULAR VOLUME 88.2 fl (80.0-96.0); MONO # 0.7 10^3/uL (0.0-0.8); MONO % 6.5 % (0.0-5.0); NEUTROPHILS # 8.1 10^3/uL (1.8-7.7); PLATELET COUNT, AUTOMATED 396 10^3/uL (150-450); RED BLOOD COUNT 3.74 10^6/uL (4.00-5.40); WHITE BLOOD COUNT 10.7 10^3/uL (4.0-10.0)
[2019-07-23 13:53] LABS: ALBUMIN 3.6 GM/DL (3.2-5.2); ALT/SGPT 19 U/L (12-78); BILIRUBIN,DIRECT 0.2 MG/DL (0.0-0.2); BILIRUBIN,TOTAL 0.4 MG/DL (0.2-1.0); BLOOD UREA NITROGEN 17 MG/DL (7-18); CARBON DIOXIDE LEVEL 28 MEQ/L (21-32); CHLORIDE LEVEL 105 MEQ/L (98-107); CK-MB VALUE MASS < 1.0 NG/ML (<3.6); CPK CREATINE PHOSPHOKINASE 45 U/L (26-192); CREATININE FOR GFR 0.89 MG/DL (0.55-1.30); GLOMERULAR FILTRATION RATE > 60.0 (>39); GLUCOSE, FASTING 82 MG/DL (70-100); MB/CK RELATIVE INDEX 2.22 (< OR =4); POTASSIUM SERUM 3.9 MEQ/L (3.5-5.1); SODIUM LEVEL 139 MEQ/L (136-145); THYROXINE (T4) 10.5 UG/DL (4.5-12.0); TOTAL PROTEIN 6.9 GM/DL (6.4-8.2); TROPONIN I < 0.02 NG/ML (< 0.10)
[2019-07-23] MEDS ORDERED: ISOVUE-370 76% 100ML VIAL (Q9967) As Ordered ONE (14:04)
[2019-07-23 14:16] LABS: INR 1.07; PROTHROMBIN TIME 13.6 SECONDS (11.8-14.0)
--- NOTE | 2019-07-23 14:32 | REP ---
CT of the head without contrast Indication: Shortness of breath. Postop. Comparison: CT head of 07/18/2017. Technique: Axial CT of the head was performed without contrast. Findings: There is no visible soft tissue swelling or calvarial fracture. There is no evidence of acute intracranial hemorrhage or extra-axial fluid collection. There is similar appearance of scattered hypodensities within the periventricular and subcortical white matter which is nonspecific but suggestive of microvascular ischemic disease. Note is made of intracranial vascular calcification. There is no mass effect or midline shift. The basal cisterns are patent. There is no hydrocephalus. The visualized paranasal sinuses and mastoid air cells are clear. Impression: No acute intracranial abnormality. Similar white matter disease. Electronically Signed by Paige Grimes MD 07/23/2019 02:23 P
--- NOTE | 2019-07-23 14:51 | REP ---
CT of the chest with IV contrast, CT pulmonary angiography: There are no comparison chest CTs. There are no emboli in the pulmonary trunk or central pulmonary arteries. There are no emboli in the pulmonary lobe or segment branches. There are no infiltrates or pleural effusions. This a small focal zone of atelectasis in the deep inferior sulcus in the left costophrenic angle. There is no mediastinal or hilar lymph node enlargement. No axillary lymph node enlargement. The thoracic aorta is unremarkable. Cardiac size is upper normal. There are a few stable hepatic cysts, unchanged from an abdomen CT of 01/11/2011. The visualized upper abdomen is otherwise unremarkable. Impression: There are no pulmonary emboli. There is focal atelectasis in the left costophrenic angle. There are stable hepatic cysts. Cardiac size is upper normal. Electronically Signed by Gregg Yusuf MD 07/23/2019 02:43 P
[2019-07-23] MEDS ORDERED: ACET650T3 PO (15:47)
[2019-07-23] MEDS ORDERED: TRAM50TA2 PO (15:47)
[2019-07-23] MEDS ORDERED: MELATAB7 PO (15:47)
[2019-07-23] MEDS ORDERED: MELA5TAB7 PO (15:52)
--- NOTE | 2019-07-23 16:44 | REP ---
Bilateral carotid artery duplex ultrasound: Peak flow velocity analysis: RIGHT LEFT ICA Peak flow velocity cm/sec 85.6 81.8 ICA Diastolic flow velocity cm/sec 20.2 24.2 ICA/CCA Ratio 1.01 0.95 ECA Peak flow velocity cm/sec 64.7 48.3 CCA Peak flow velocity cm/sec 84.8 86.4 There is no visible atheromatous plaque on the right on the left. The peak flow velocities are normal bilaterally. There is no stenosis on the right on the left. There is antegrade flow in the vertebral arteries bilaterally. Electronically Signed by Gregg Yusuf MD 07/23/2019 04:34 P
[2019-07-23 17:05] VITALS: BP 145/72
[2019-07-23 17:41] LABS: CHOLESTEROL LEVEL 206 MG/DL (<200); CHOLESTEROL RISK RATIO 4.291 (<5); HDL CHOLESTEROL 48 MG/DL (>40); LDL CHOLESTEROL 135 MG/DL (<100); NON-HDL-C 158 MG/DL; TRIGLYCERIDES LEVEL 113 MG/DL (<150)
[2019-07-23] MEDS ORDERED: SLF 3 ML SYR IV PRN (18:30)
[2019-07-23] MEDS ORDERED: ACETAMINOPHEN 650MG ER TAB (TYLENOL ARTHRITIS) PO PRN (18:45)
[2019-07-23] MEDS ORDERED: traMADol 50 MG TAB PO PRN (18:45)
[2019-07-23] MEDS ORDERED: ONDANSETRON 4MG/2ML VIAL (J2405) IV SCH (19:00)
--- NOTE | 2019-07-23 19:08 | IPNPDOC ---
Date Seen The patient was seen on 07/23/19. Progress Note After hospital admission, pt c/o early satiety, intractable nausea while eating her dinner. plan: r/o gastroparesis ugi series in am iv italo castro for comfort. check card montoya r/o acs, check lfts, lipase, amylase r/o pancreatitis. check lactic acid and procalcitonin r/o early infection. VS, I&O, 24H, Fishbone Vital Signs/I&O Vital Signs Date Time Temp Pulse Resp B/P (MAP) Pulse Ox O2 Delivery O2 Flow Rate FiO2 07/23/19 17:05 98.8 82 18 145/72 (96) 97 07/23/19 16:15 Room Air Laboratory Data 24H LABS Laboratory Tests 2 07/23/19 13:02: Immature Granulocyte % (Auto) 0.6, White Blood Count 10.7H, Red Blood Count 3.74L, Hemoglobin 10.7L, Hematocrit 33.0L, Mean Corpuscular Volume 88.2, Mean Corpuscular Hemoglobin 28.6, Mean Corpuscular Hemoglobin Concent 32.4, Red Cell Distribution Width 14.7H, Platelet Count 396, Neutrophils (%) (Auto) 76.0H, Lymphocytes (%) (Auto) 15.4L, Monocytes (%) (Auto) 6.5H, Eosinophils (%) (Auto) 0.8, Basophils (%) (Auto) 0.7, Neutrophils # (Auto) 8.1H, Lymphocytes # (Auto) 1.6, Monocytes # (Auto) 0.7, Eosinophils # (Auto) 0.1, Basophils # (Auto) 0.1, Nucleated Red Blood Cells % (auto) 0.0, Prothrombin Time 13.6, Prothromb Time International Ratio 1.07, Anion Gap 6L, Glomerular Filtration Rate > 60.0, Calcium Level 9.0, Aspartate Amino Transf (AST/SGOT) 17, Alanine Aminotransferase (ALT/SGPT) 19, Alkaline Phosphatase 125H, Total Bilirubin 0.4, Direct Bilirubin 0.2, Total Creatine Kinase 45, Creatine Kinase MB < 1.0, Cre atine Kinase MB Relative Index 2.22, Troponin I < 0.02, Total Protein 6.9, Albumin 3.6, Albumin/Globulin Ratio 1.09, Triglycerides Level 113, Total Cholesterol 206H, LDL Cholesterol 135H, Non-HDL Cholesterol (LDL + VLDL) 158, Total HDL Cholesterol 48, Cholesterol/HDL Ratio 4.291, Thyroid Stimulating Hormone (TSH) 4.270H, Thyroxine (T4) 10.5 CBC/BMP Laboratory Tests 07/23/19 13:02 Red Blood Count 3.74 L, Mean Corpuscular Volume 88.2, Mean Corpuscular Hemoglobin 28.6, Mean Corpuscular Hemoglobin Concent 32.4, Red Cell Distribution Width 14.7 H, Neutrophils (%) (Auto) 76.0 H, Lymphocytes (%) (Auto) 15.4 L, Monocytes (%) (Auto) 6.5 H, Eosinophils (%) (Auto) 0.8, Basophils (%) (Auto) 0.7, Neutrophils # (Auto) 8.1 H, Lymphocytes # (Auto) 1.6, Monocytes # (Auto) 0.7, Eosinophils # (Auto) 0.1, Basophils # (Auto) 0.1 KLAUDIA PEREZ MD Jul 23, 2019 19:08
[2019-07-23] MEDS ORDERED: ALPRAZolam 0.25 MG TAB PO PRN (19:15)
[2019-07-23] MEDS ORDERED: ONDANSETRON 4MG/2ML VIAL (J2405) IV PRN (19:15)
[2019-07-23 20:00] VITALS: BP 142/64
[2019-07-23] MEDS ORDERED: METOCLOPRAMIDE INJ 10MG/2ML VIAL (J2765) IV ONE (20:00)
[2019-07-23] MEDS ORDERED: PANTOPRAZOLE 40MG INJ (PROTONIX) (C9113) IV ONE (20:00)
[2019-07-23] MEDS: ASPIRIN 325 MG TAB PO SCH (20:13)
[2019-07-23] MEDS: SLF 3 ML SYR IV SCH (20:13)
[2019-07-23 20:43] LABS: ALBUMIN 3.2 GM/DL (3.2-5.2); ALT/SGPT 18 U/L (12-78); AMYLASE 38 U/L (25-115); BILIRUBIN,DIRECT 0.1 MG/DL (0.0-0.2); BILIRUBIN,TOTAL 0.5 MG/DL (0.2-1.0); C REACTIVE PROTEIN QUANTITATIV 0.94 MG/DL (0.00-0.30); CK-MB VALUE MASS 1.2 NG/ML (<3.6); CPK CREATINE PHOSPHOKINASE 48 U/L (26-192); LIPASE 48 U/L (73-393); TOTAL PROTEIN 6.2 GM/DL (6.4-8.2); TROPONIN I < 0.02 NG/ML (< 0.10)
[2019-07-23] MEDS ORDERED: NON-FORMULARY 1 EA EA PO SCH (21:00)
[2019-07-23 23:59] VITALS: BP 102/53
[2019-07-24 04:00] VITALS: BP 119/56
[2019-07-24 04:06] LABS: BLOOD UREA NITROGEN 14 MG/DL (7-18); CALCIUM LEVEL 8.2 MG/DL (8.8-10.2); CARBON DIOXIDE LEVEL 27 MEQ/L (21-32); CHLORIDE LEVEL 108 MEQ/L (98-107); CREATININE FOR GFR 0.84 MG/DL (0.55-1.30); GLOMERULAR FILTRATION RATE > 60.0 (>39); GLUCOSE, FASTING 90 MG/DL (70-100); POTASSIUM SERUM 3.6 MEQ/L (3.5-5.1); SODIUM LEVEL 141 MEQ/L (136-145)
[2019-07-24 04:16] LABS: HEMATOCRIT 30.6 % (36.0-47.0); HEMOGLOBIN 9.7 g/dl (12.0-15.5); MEAN CORPUSCULAR HEMOGLOBIN 28.3 pg (27.0-33.0); MEAN CORPUSCULAR HGB CONC 31.7 g/dl (32.0-36.5); MEAN CORPUSCULAR VOLUME 89.2 fl (80.0-96.0); PLATELET COUNT, AUTOMATED 357 10^3/uL (150-450); RED BLOOD COUNT 3.43 10^6/uL (4.00-5.40); WHITE BLOOD COUNT 7.2 10^3/uL (4.0-10.0)
[2019-07-24] MEDS: SLF 3 ML SYR IV SCH ×2 (05:30→14:31)
[2019-07-24] MEDS ORDERED: LEVOTHYROXINE 75MCG TABLET (0.075MG) PO SCH (06:00)
--- NOTE | 2019-07-24 06:52 | HPE ---
DATE OF ADMISSION: 07/23/2019 CHIEF COMPLAINT: Right leg weakness, palpitations, lightheadedness, feeling like I was going to pass out. HISTORY OF PRESENT ILLNESS: This is a 73-year-old female with recent right hip replacement on aspirin 324 mg twice a day who was at her orthopedic surgeon's office to remove the sutures out when she developed palpitations, diaphoresis, lightheadedness and severe pain on the right hip, unable to ambulate, having to swing her right leg up while taking steps with her left leg. The patient felt exasperated and exhausted when she ambulates, she is unable to step to down due to severe pain and felt out of breath and hyperventilating. She felt weak and faint, shaky at the orthopedic office. Due to complaints of lightheadedness, palpitations and weakness on the right side the patient was sent to the emergency room (ER) for further evaluation. Per the she has been having difficulty with finding words for a few months now. She has a history of small vessel ischemic disease and lacunar infarcts in the past. Last MRI showed a small aneurysm 1.5 mm -2 mm which has been monitored by her neurologist. She was previously kept on 81 mg of aspirin, currently changed to 325 mg twice a day after the hip replacement. In the ER, CT of the head was negative for acute cerebral vascular accident (CVA). The patient's right sided weakness has improved. She was evaluated with carotid Dopplers bilaterally, the results of which was negative with no stenosis on the right or on the left. She had a CT of the chest regarding palpitations and feeling of lightheadedness, no pulmonary embolus was seen. Hospitalist was asked to admit for further evaluation of right sided weakness and expressive aphasia found at the orthopedist's office. PAST MEDICAL HISTORY: 1. Transient ischemic attack (TIA). 2. Hypothyroidism. 3. Depression. 4 Hypercholesterolemia. 5. Anxiety. 6. Right hip replacement. PAST SURGICAL HISTORY: 1. Appendectomy. 2. Cholecystectomy. 3. Cataract removal. 4. Knee arthroscopy. 5. Total hysterectomy. 6. Right hip replacement 07/08/2019. ALLERGIES: SULFA, PROCHLORPERAZINE, and cashews. HOME MEDICATIONS: - acetaminophen/aspirin 325 twice a day - vitamin B12 1000 mcg daily - levothyroxine 75 mcg daily - tramadol 50 every 6 - melatonin 5 nightly FAMILY HISTORY: Father with hypertension, dyslipidemia, diabetes, heart disease. SOCIAL HISTORY: Denies smoking, social alcohol use, no drug use. Lives with , supportive family. REVIEW OF SYSTEMS: Per history of present illness (HPI) 12-point system otherwise negative. PHYSICAL EXAMINATION: VITAL SIGNS: Temperature 98.8, pulse 82, respirations 18, blood pressure 145/72, 97% on room air. GENERAL: The patient is awake, alert, oriented times three. She does have some word finding difficulty but answers questions appropriately. Speech is fluent. Face is symmetric. Pupils equal, round, and reactive to light and accommodation. Extraocular muscles intact. Normocephalic atraumatic. Tongue is midline. No facial asymmetry. NECK: Supple, full range of motion. No cervical lymphadenopathy, thyromegaly. LUNGS: Clear to auscultation, no wheezing, rales or rhonchi. HEART: S1, S2, sinus rhythm. No murmurs, rubs, gallops. ABDOMEN: Soft, nontender, nondistended. Positive bowel sounds in four quadrants. EXTREMITIES: Postoperative right hip, trace edema 1+ bilateral lower extremity. Motor function: No dysmetria on [id number] testing. No pronator drift. Motor function is 5/5 times all four extremities. Gait was not tested. Negative Babinski bilaterally. LABORATORY DATA: White count 10, hemoglobin 10, hematocrit 33, platelets count 396. Sodium 139, potassium 3.9, chloride 105, bicarbonate 28, BUN 17, creatinine 0.89, glucose 82. Total bilirubin 0.4, direct bilirubin 0.2, AST 17, ALT 19, alkaline phosphatase 125. Total CK 45, MB fraction less than 1, relative index 2.22, troponin less than 0.02, total protein 6.9, albumin 3.6. Triglyceride 113, total cholesterol 206, LDL 135, total HD 48, TSH 4.27. Microbiology none. IMAGING STUDIES: CT of the head: Small vessel ischemic disease. No acute intracranial abnormality. CT chest: No pulmonary embolism. Stable hepatic cyst. Cardiac size is upper normal. Carotid Dopplers: No stenosis on the right or left. ASSESSMENT AND PLAN: 73-year-old female with recent hip surgery in early June on aspirin 325 twice a day presents to the emergency room with complaints of dizziness, lightheadedness, hyperventilation, right sided weakness due to severe pain and inability to ambulate which resolved on evaluation in the emergency room. She was at her physician's office on the way when she felt these and was subsequently sent over for further evaluation. She is admitted for the following acute issues: 1. Right sided weakness with complaints of feeling faint, hyperventilating. The patient's CT vascular Dopplers of the carotids are negative. Her symptoms have completely resolved. Neurologist has been consulted. She is continued on aspirin 325 twice a day, Lovenox 40 subcutaneous daily for deep venous thrombosis prophylaxis. Neurochecks every 4 hours, resumed on all of her home medications. Echocardiogram has been ordered. 2. Right hip replacement on aspirin twice a day. Currently on Lovenox on admission. Physical therapy, occupational therapy, pain control and outpatient followup with orthopedic surgery as recommended. 3. Anxiety with episodes of hyperventilation. The patient is currently not on any medications. Defer to primary care physician. 4.Dyslipidemia. I will check fasting lipid profile. 5. Hypothyroidism. Continue on levothyroxine. Reviewed thyroid function tests. 6. Depression. No acute suicidal or homicide ideation. 7. 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 Followed by neurologist. Currently on aspirin. 8. History of small brain aneurysm 1.5 mm - 2 mm. Followed by her neurologist.
[2019-07-24 08:00] VITALS: BP 123/65
[2019-07-24] MEDS: ASPIRIN 325 MG TAB PO SCH (08:32)
--- NOTE | 2019-07-24 08:37 | CR ---
DATE OF CONSULTATION: 07/24/2019 REFERRING PROVIDER: Dr. Karey Ambriz REASON CONSULTATION: Suspected transient ischemic attack (TIA). HISTORY OF PRESENT ILLNESS: Paulette Amin is a 73-year-old female with past medical history significant for prior history of stroke, currently on aspirin 325 mg regimen twice a day for deep vein thrombosis (DVT) prevention, in a patient who is status post right hip arthroplasty completed in early June 2019 approximately 2 weeks ago. The patient presented to [facility] with symptoms of feeling weak all over. The patient clarifies and denies having had any dysarthria . She denies having any hemiparesis during this episode. She is having tremendous pain in her right hip. She tried to get up and when she stood she felt quite lightheaded, dizzy and weak all over. She felt she needed to sit down. Every time she would attempt to do this she was feels strong palpitations and feel nausea as well. The patient was brought to [facility] where a head CT was obtained which was negative for any acute stroke. Carotid ultrasound was reported to be completely negative. The patient was told that she should not have an MRI due to recent hip surgery due to the hardware. She will receive a repeat head CT tomorrow morning. The patient at this time denies any focal neurological dysfunction. She denies any headache. She only complains of right-sided hip pain. ALLERGIES: 1. SULFA. 2. COMPAZINE. 3. Cashews. HOME MEDICATIONS: - levothyroxine 25 mcg p.o. daily - vitamin D3 1000 international units p.o. daily - vitamin B12 100 mcg p.o. daily - aspirin 325 mg p.o. b.i.d. MEDICATIONS IN HOSPITAL: Include: - Lovenox 40 mg subcu daily for DVT prevention. REVIEW OF SYSTEMS: 14-point review of systems obtained and is negative except as per HPI. PAST MEDICAL HISTORY: Symptomatic right hip osteoarthritis. Anxiety. Hypercholesterolemia. Hypothyroidism. Depression. History of stroke. Intracranial left ICA aneurysm, 1-2 mm in size, not ruptured. PAST SURGICAL HISTORY: Appendectomy. Cholecystectomy. Total hysterectomy. Knee arthroscopy. Cataract removal. Right hip arthroplasty. FAMILY HISTORY: Noncontributory. SOCIAL HISTORY: The patient denies use of tobacco, alcohol or illicit drugs. REVIEW OF SYSTEMS: 14-point review of systems obtained and is negative except as per HPI. PHYSICAL EXAMINATION: Blood pressure is 145/72, pulse rate 82, respiratory rate is 18, temperature is 98.8 degrees Fahrenheit, oxygenation is 97% on room air. The patient is awake, alert, and oriented to person, place and time. Speech, language comprehension and repetition are intact. Pupils are 3 mm round and reactive to light. Facial symmetry is preserved to activation. Palate elevates symmetrically. Tongue is midline. No weakness of sternocleidomastoids bilaterally. There is no pronator drift. Strength is 5/5 including bilateral deltoids, biceps, triceps, handgrip, quadriceps, anterior tibialis and left iliopsoas. The patient demonstrates reasonable 5- strength in the right iliopsoas with give-way weakness secondary to pain. Sensory is intact to light touch in all four extremities. Coordination normal [id number] without any signs of ataxia or dysmetria. Romberg testing deferred. ASSESSMENT: 73-year-old female with past medical history of 1-2 mm left ICA aneurysm, unruptured, history of prior TIA/stroke, on aspirin 25 mg p.o. b.i.d. for DVT prevention as per orthopedics presenting with symptoms of generalized weakness, lightheadedness, dizziness without symptoms of dysarthria or hemiparesis as per the patient. The patient had recurring episodes of palpitations. PLAN: Repeat head CT in the morning. The patient recently had intracranial imaging which was negative for any high-grade stenosis. Continue telemetry monitoring regarding palpitations. Check TSH. Similar symptoms occurred in the past when thyroid function was abnormal. Recommend cardiological evaluation. Recommend echocardiogram. Physical therapy/occupational therapy (PT/OT). Keep systolic blood pressure normal. Continue supportive medical care as per primary team.
[2019-07-24] MEDS ORDERED: ENOXAPARIN 40 MG/0.4 ML SYRINGE (J1650) SC SCH (09:00)
--- NOTE | 2019-07-24 10:26 | IPNPDOC ---
Date Seen The patient was seen on 07/24/19. Progress Note SUBJECTIVE: no c/o right arm or leg weakness, paresthesias. still w pain 4/10 with ambulation, and usually needs to swing her right leg to walk. c/o early satiety, diaphoresis, and hyperventilation yesterday after taking afew bites of dinner c/o dysphagia to solids, 10lb weight loss due to decreased appetite for few weeks no hematemesis or black tarry stools. 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 no c/o lightheadedness or dizzines, cp, pressure, tightness tele: unremarkable. PHYSICAL EXAMINATION: VITAL SIGNS: pls see below GENERAL: The patient is awake, alert, oriented times three. She does have some word finding difficulty which she says is chronic, but answers questions appropriately. Speech is fluent. Face is symmetric. Pupils equal, round, and reactive to light and accommodation. Extraocular muscles intact. Normocephalic atraumatic. Tongue is midline. No facial asymmetry. NECK: Supple, full range of motion. No cervical lymphadenopathy, thyromegaly. LUNGS: Clear to auscultation, no wheezing, rales or rhonchi. HEART: S1, S2, sinus rhythm. No murmurs, rubs, gallops. ABDOMEN: Soft, nontender, nondistended. Positive bowel sounds in four quadrants. EXTREMITIES: Postoperative right hip, trace edema 1+ bilateral lower extremity. NEURO: Motor function: No dysmetria on [id number] testing. No pronator drift. Motor function is 5/5 times all four extremities. Gait was not tested. Negative Babinski bilaterally. LABORATORY DATA, IMAGING STUDIES, MICROBIOLOGY: PLS SEE BELOW IMAGING STUDIES: CT of the head: Small vessel ischemic disease. No acute intracranial abnormality. CT chest: No pulmonary embolism. Stable hepatic cyst. Cardiac size is upper normal. Carotid Dopplers: No stenosis on the right or left. ASSESSMENT AND PLAN: 73-year-old female with recent hip surgery in early June on aspirin 325 twice a day presents to the emergency room with complaints of dizziness, lightheadedness, hyperventilation, right sided weakness due to severe pain and inability to ambulate which resolved on evaluation in the emergency room. She was at her physician's office on the way when she felt these and was subsequently sent over for further evaluation. She is admitted for the following acute issues: 1. Right sided weakness with complaints of feeling faint, hyperventilating. Ct head negative. MRI 2months ago small vessel ischemic disease old lacunar infarct small aneurysms monitored by neurologist Dr. Albert. The patient's CT vascular Dopplers of the carotids are negative. Her symptoms have completely resolved. Neurologist Dr. Garduno, has been consulted. She is continued on aspirin 325 twice a day, Lovenox 40 subcutaneous daily for deep venous thrombosis prophylaxis. Neurochecks every 4 hours, resumed on all of her home medications. Echocardiogram has been ordered, but unavailable 2. Right hip replacement on aspirin twice a day. Currently on Lovenox on admission. Physical therapy, occupational therapy, pain control and outpatient followup with orthopedic surgery as recommended. Due to c/o "uncontrollable shakes, " when she "hyperventilates, blood cx obtained to rule out sepsis. crp and esr lightly elevated. afebrile procalcitonin pending. 3. Anxiety with episodes of hyperventilation. The patient is currently not on any medications. Defer to primary care physician. given trial of xanax 4.Dyslipidemia. I will check fasting lipid profile. 5. Hypothyroidism. Continue on levothyroxine. Reviewed thyroid function tests. 6. Depression. No acute suicidal or homicide ideation. 7. 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 Followed by neurologist. Currently on aspirin. 8. History of small brain aneurysm 1.5 mm - 2 mm. Followed by her neurologist. 9. Dysphagia to solids, early satiety, nausea: ugi series to r/o reflux, hiatal hernia, PUD, schatzki's. may need motility studies as outpt and gi referral to be done by pcp. disposition: wants to go home today. low suspicion of CVA. may dc if passes HSE. VS, I&O, 24H, Fishbone Vital Signs/I&O Vital Signs Date Time Temp Pulse Resp B/P (MAP) Pulse Ox O2 Delivery O2 Flow Rate FiO2 07/24/19 08:00 97.4 76 18 123/65 (84) 98 07/23/19 16:15 Room Air I&O- Last 24 Hours up to 6 AM 07/24/19 06:00 Intake Total 200 ml Output Total 100 ml Balance 100 ml Laboratory Data 24H LABS Laboratory Tests 2 07/23/19 13:02: Immature Granulocyte % (Auto) 0.6, White Blood Count 10.7H, Red Blood Count 3.74L, Hemoglobin 10.7L, Hematocrit 33.0L, Mean Corpuscular Volume 88.2, Mean Corpuscular Hemoglobin 28.6, Mean Corpuscular Hemoglobin Concent 32.4, Red Cell Distribution Width 14.7H, Platelet Count 396, Neutrophils (%) (Auto) 76.0H, Lymphocytes (%) (Auto) 15.4L, Monocytes (%) (Auto) 6.5H, Eosinophils (%) (Auto) 0.8, Basophils (%) (Auto) 0.7, Neutrophils # (Auto) 8.1H, Lymphocytes # (Auto) 1.6, Monocytes # (Auto) 0.7, Eosinophils # (Auto) 0.1, Basophils # (Auto) 0.1, Nucleated Red Blood Cells % (auto) 0.0, Prothrombin Time 13.6, Prothromb Time International Ratio 1.07, Anion Gap 6L, Glomerular Filtration Rate > 60.0, Calcium Level 9.0, Aspartate Amino Transf (AST/SGOT) 17, Alanine Aminotr ansferase (ALT/SGPT) 19, Alkaline Phosphatase 125H, Total Bilirubin 0.4, Direct Bilirubin 0.2, Total Creatine Kinase 45, Creatine Kinase MB < 1.0, Creatine Kinase MB Relative Index 2.22, Troponin I < 0.02, Total Protein 6.9, Albumin 3.6, Albumin/Globulin Ratio 1.09, Triglycerides Level 113, Total Cholesterol 206H, LDL Cholesterol 135H, Non-HDL Cholesterol (LDL + VLDL) 158, Total HDL Cholesterol 48, Cholesterol/HDL Ratio 4.291, Thyroid Stimulating Hormone (TSH) 4.270H, Thyroxine (T4) 10.5 07/23/19 19:58: Aspartate Amino Transf (AST/SGOT) 9, Alanine Aminotransferase (ALT/SGPT) 18, Alkaline Phosphatase 120H, Total Bilirubin 0.5, Direct Bilirubin 0.1, Total Creatine Kinase 48, Creatine Kinase MB 1.2, Creatine Kinase MB Relative Index 2.50, Troponin I < 0.02, Total Protein 6.2L, Albumin 3.2, Albumin/Globulin Ratio 1.07, Erythrocyte Sedimentation Rate 52H, C-Reactive Protein, Quantitative 0.94H, Amylase Level 38, Lipase 48L 07/23/19 19:59: Lactic Acid Level 1.7 07/24/19 03:29: Nucleated Red Blood Cells % (auto) 0.0, Anion Gap 6L, Glomerular Filtration Rate > 60.0, Calcium Level 8.2L, Blood Urea Nitrogen 14, Creatinine 0.84, Sodium Level 141, Potassium Level 3.6, Chloride Level 108H, Carbon Dioxide Level 27 CBC/BMP Laboratory Tests 07/23/19 13:02 Red Blood Count 3.74 L, Mean Corpuscular Volume 88.2, Mean Corpuscular Hemoglobin 28.6, Mean Corpuscular Hemoglobin Concent 32.4, Red Cell Distribution Width 14.7 H, Neutrophils (%) (Auto) 76.0 H, Lymphocytes (%) (Auto) 15.4 L, Monocytes (%) (Auto) 6.5 H, Eosinophils (%) (Auto) 0.8, Basophils (%) (Auto) 0.7, Neutrophils # (Auto) 8.1 H, Lymphocytes # (Auto) 1.6, Monocytes # (Auto) 0.7, Eosinophils # (Auto) 0.1, Basophils # (Auto) 0.1 07/24/19 03:29 Red Blood Count 3.43 L, Mean Corpuscular Volume 89.2, Mean Corpuscular Hemoglobin 28.3, Mean Corpuscular Hemoglobin Concent 31.7 L, Red Cell Distribution Width 14.8 H, Calcium Level 8.2 L Microbiology Microbiology 07/24/19 Blood Culture, Received Pending 07/24/19 Blood Culture, Received Pending KLAUDIA PEREZ MD Jul 24, 2019 10:26
[2019-07-24] MEDS ORDERED: E-Z-HD 98% w/w 340GM SUSP BTL As Ordered ONE (10:37)
[2019-07-24] MEDS ORDERED: E-Z-PAQUE 96% w/w SUSP 176GM BTL As Ordered ONE (10:37)
[2019-07-24] MEDS ORDERED: E-Z-GAS II EFFERVESCENT PACKET (SODIUM BICARB./CITRIC ACID/SIMETHICONE) As Ordered ONE (10:37)
[2019-07-24 11:01] LABS: FREE THYROXINE INDEX 2.6 % (1.3-4.8); T UPTAKE 35 % (30-39); THYROXINE (T4) 7.3 UG/DL (4.5-12.0)
--- NOTE | 2019-07-24 11:41 | DS.PDOC ---
Discharge Summary General Date of Admission Jul 23, 2019 at 15:21 Date of Discharge JUL 24, 2019 Discharge Summary NEURO-DR. MAXWELL DISCHARGE DIAGNOSES: Palpitations Right sided Weakness -negative CT Head recent Right hip ORIF Anxiety Hypothyroidism Dyslipidemia Dysphagia to solids Old Lacunar infarct Brain aneurysm 1.5mm per Dr. Albert DISCHARGE MEDICATIONS: PLS SEE BELOW HOSPITAL COURSE 73-year-old female with recent hip surgery in early June on aspirin 325 twice a day presents to the emergency room with complaints of dizziness, lightheadedness, hyperventilation, right sided weakness due to severe pain and inability to ambulate which resolved on evaluation in the emergency room. She was at her physician's office on the way when she felt these and was subsequently sent over for further evaluation. Right sided weakness with complaints of feeling faint, hyperventilating. DDX: TIA, PE, arrhythmia. pt was admitted to telemetry unit which was unremarkable overnight. Ct head negative. MRI 2months ago small vessel ischemic disease old lacunar infarct small aneurysms monitored by neurologist Dr. Albert. The patient's CT vascular Dopplers of the carotids are negative. Her symptoms have completely resolved. Neurologist Dr. Maxwell, has been consulted. She was continued on aspirin 325 twice a day, Lovenox 40 subcutaneous daily for deep venous thrombosis prophylaxis. normal Neurochecks overnight. CT chest: negative for PE. ECHO report was pending. Pt was back to baseline strength, and cleared by physical therapy. Due to "uncontrollableshakes, " when she "hyperventilates, blood cx obtained to rule out sepsis. crp and esr lightly elevated. afebrile procalcitonin pending. no empiric antibiotics. Palpitations no arrhythmias on telemetry. outpt pcp to refer to appeals analyst if recurrent or if develops near syncope for holter monitor. Right hip replacement on aspirin twice a day. Currently on Lovenox on admission. Physical therapy, occupational therapy, pain control and outpatient followup with orthopedic surgery as recommended. CT chest was negative for PE. Anxiety with episodes of hyperventilation. The patient is currently not on any medications. Defer to primary care physician. given trial of xanax Dyslipidemia. chronic Hypothyroidism. on levothyroxine. Reviewed thyroid function tests. 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 Depression. No acute suicidal or homicide ideation. 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 on aspirin. dr. Maxwell has no new recommendations. carotid dopplers were negative. ct head was negative. outpt cardio referral to be done by pcp. History of small brain aneurysm 1.5 mm - 2 mm. Followed by her neurologist. Dysphagia to solids, early satiety, nausea: ugi series to r/o reflux, hiatal hernia, PUD, schatzki's. may need motility studies as outpt and gi referral to be done by pcp. DISCHARGE PHYSICAL EXAMINATION: VITAL SIGNS: pls see below GENERAL: The patient is awake, alert, oriented times three. She does have some word finding difficulty which she says is chronic, but answers questions appropriately. Speech is fluent. anicteric no jaundice no use of respiratory accessory muscles Face is symmetric. Pupils equal, round, and reactive to light and accommodation. Extraocular muscles intact. Normocephalic atraumatic. Tongue is midline. No facial asymmetry. NECK: Supple, full range of motion. No cervical lymphadenopathy, thyromegaly. LUNGS: Clear to auscultation, no wheezing, rales or rhonchi. HEART: S1, S2, sinus rhythm. No murmurs, rubs, gallops. ABDOMEN: Soft, nontender, nondistended. Positive bowel sounds in four quadrants. EXTREMITIES: Postoperative right hip, trace edema 1+ bilateral lower extremity. NEURO: Motor function: No dysmetria on [id number] testing. No pronator drift. Motor function is 5/5 times all four extremities. Gait was not tested. Negative Babinski bilaterally. LABORATORY DATA, IMAGING STUDIES, MICROBIOLOGY: PLS SEE BELOW IMAGING STUDIES: CT of the head: Small vessel ischemic disease. No acute intracranial abnormality. CT chest: No pulmonary embolism. Stable hepatic cyst. Cardiac size is upper normal. Carotid Dopplers: No stenosis on the right or left. TIME SPENT ON HOSPITAL DISCHARGE: 32 MINUTES. Vital Signs/I&Os Vital Signs Date Time Temp Pulse Resp B/P (MAP) Pulse Ox O2 Delivery O2 Flow Rate FiO2 07/24/19 08:00 97.4 76 18 123/65 (84) 98 07/23/19 16:15 Room Air I&O- Last 24 Hours up to 6 AM 07/24/19 06:00 Intake Total 200 ml Output Total 100 ml Balance 100 ml Laboratory Data Labs 24H Laboratory Tests 2 07/23/19 13:02: Immature Granulocyte % (Auto) 0.6, White Blood Count 10.7H, Red Blood Count 3.74L, Hemoglobin 10.7L, Hematocrit 33.0L, Mean Corpuscular Volume 88.2, Mean Corpuscular Hemoglobin 28.6, Mean Corpuscular Hemoglobin Concent 32.4, Red Cell Distribution Width 14.7H, Platelet Count 396, Neutrophils (%) (Auto) 76.0H, Lymphocytes (%) (Auto) 15.4L, Monocytes (%) (Auto) 6.5H, Eosinophils (%) (Auto) 0.8, Basophils (%) (Auto) 0.7, Neutrophils # (Auto) 8.1H, Lymphocytes # (Auto) 1.6, Monocytes # (Auto) 0.7, Eosinophils # (Auto) 0.1, Basophils # (Auto) 0.1, Nucleated Red Blood Cells % (auto) 0.0, Prothrombin Time 13.6, Prothromb Time In ternational Ratio 1.07, Anion Gap 6L, Glomerular Filtration Rate > 60.0, Calcium Level 9.0, Aspartate Amino Transf (AST/SGOT) 17, Alanine Aminotransferase (ALT/SGPT) 19, Alkaline Phosphatase 125H, Total Bilirubin 0.4, Direct Bilirubin 0.2, Total Creatine Kinase 45, Creatine Kinase MB < 1.0, Creatine Kinase MB Relative Index 2.22, Troponin I < 0.02, Total Protein 6.9, Albumin 3.6, Albumin/Globulin Ratio 1.09, Triglycerides Level 113, Total Cholesterol 206H, LDL Cholesterol 135H, Non-HDL Cholesterol (LDL + VLDL) 158, Total HDL Cholesterol 48, Cholesterol/HDL Ratio 4.291, Thyroid Stimulating Hormone (TSH) 4.270H, Thyroxine (T4) 10.5 07/23/19 19:58: Aspartate Amino Transf (AST/SGOT) 9, Alanine Aminotransferase (ALT/SGPT) 18, Alkaline Phosphatase 120H, Total Bilirubin 0.5, Direct Bilirubin 0.1, Total Creatine Kinase 48, Creatine Kinase MB 1.2, Creatine Kinase MB Relative Index 2.50, Troponin I < 0.02, Total Protein 6.2L, Albumin 3.2, Albumin/Globulin Ratio 1.07, Erythrocyte Sedimentation Rate 52H, C-Reactive Protein, Quantitative 0.94H, Amylase Level 38, Lipase 48L 07/23/19 19:59: Lactic Acid Level 1.7 07/24/19 03:29: Nucleated Red Blood Cells % (auto) 0.0, Anion Gap 6L, Glomerular Filtration Rate > 60.0, Calcium Level 8.2L, Blood Urea Nitrogen 14, Creatinine 0.84, Sodium Level 141, Potassium Level 3.6, Chloride Level 108H, Carbon Dioxide Level 27 CBC/BMP Laboratory Tests 07/23/19 13:02 Red Blood Count 3.74 L, Mean Corpuscular Volume 88.2, Mean Corpuscular Hemoglobin 28.6, Mean Corpuscular Hemoglobin Concent 32.4, Red Cell Distribution Width 14.7 H, Neutrophils (%) (Auto) 76.0 H, Lymphocytes (%) (Auto) 15.4 L, Monocytes (%) (Auto) 6.5 H, Eosinophils (%) (Auto) 0.8, Basophils (%) (Auto) 0.7, Neutrophils # (Auto) 8.1 H, Lymphocytes # (Auto) 1.6, Monocytes # (Auto) 0.7, Eosinophils # (Auto) 0.1, Basophils # (Auto) 0.1 07/24/19 03:29 Red Blood Count 3.43 L, Mean Corpuscular Volume 89.2, Mean Corpuscular Hemoglobin 28.3, Mean Corpuscular Hemoglobin Concent 31.7 L, Red Cell Distribution Width 14.8 H, Calcium Level 8.2 L Microbiology Microbiology 07/24/19 Blood Culture, Received Pending 07/24/19 Blood Culture, Received Pending Discharge Medications Scheduled Aspirin (Aspirin) 325 Mg Tablet, 325 MG PO BID, (Reported) PT TOLD TO TAKE ASPIRIN TWICE A DAY INSTEAD OF XARELTO Cyanocobalamin (Vitamin B-12) (Vitamin B-12) 1,000 Mcg Tab, 1,000 MCG PO DAILY, (Reported) @ NOON Levothyroxine Sodium (Levothyroxine Sodium) 75 Mcg Tablet, 75 MCG PO DAILY, (Reported) Melatonin (Melatonin) 5 Mg Tablet, 5 MG PO QHS, (Reported) Scheduled PRN Acetaminophen (Pain Reliever) 650 Mg Tablet.er, 650 MG PO Q8H PRN for PAIN, (Reported) Tramadol HCl (Tramadol HCl) 50 Mg Tablet, 50 MG PO Q6H PRN for PAIN, (Reported) Allergies Coded Allergies: prochlorperazine (Verified Allergy, Severe, jaw displaced, swelling, 06/09/19) Cashew (Verified Allergy, Intermediate, BLISTERS, 06/09/19) Sulfa (Sulfonamide Antibiotics) (Verified Allergy, Intermediate, hives, 06/09/19) KLAUDIA PEREZ MD Jul 24, 2019 10:28
[2019-07-24] MEDS ORDERED: CYANOCOBALAMIN 500 MCG TAB PO SCH (12:00)
[2019-07-24 12:50] VITALS: BP 139/73
--- NOTE | 2019-07-24 18:34 | REP ---
UPPER GI AIR CONTRAST AND SMALL BOWEL FOLLOW THROUGH The procedure was performed under the direct supervision of Dr. Yusuf. The images were reviewed with Dr. Yusuf The application systems engineer film shows no organomegaly or pathological masses. The intestinal gas pattern is non-specific. There are surgical clips noted in the right upper quadrant. The patient is status post right hip arthroplasty. Liquid barium and gas producing crystals were given in the erect position as well as liquid barium in the prone oblique position in order to perform a double contrast upper GI examination. Additionally liquid barium was given at the end of the examination in order to perform a small bowel follow through. The oral and pharyngeal stages of deglutition are unremarkable. Esophageal transport is prompt and efficient and there is no esophagitis, stricture or mucosal ring. There is a small hiatal hernia. Gastroesophageal reflux is not demonstrated on this examination. The stomach rogers are normally outlined . The rugal folds are smooth and regular. There is no gastritis neoplasm or ulcer disease. The duodenal rogers are normally outlined . The mucosal folds are smooth and regular. There is no duodenitis pancreatitis peptic ulcer disease or neoplasm. The visualized portion of the proximal small bowel appears normal in course and caliber. The barium column was followed through the small bowel to the level of the terminal ileum. Small bowel transit time is approximately 15 minutes . During fluoroscopy gentle palpation shows all loops are freely movable and pliable. There are no fixed or angulated loops. The small bowel mucosal pattern is normal in course and caliber. There is no transition to suggest a partial small-bowel obstruction. Spot filming of the terminal ileum shows it to be unremarkable. Impression: There is a small hiatal hernia, otherwise, unremarkable double contrast upper GI and small bowel follow through examination. 3.2 minutes of fluoro time was utilized for this procedure. Reviewed by CHERYL Jorge 07/24/2019 04:49 P Electronically Signed by Gregg Yusuf MD 07/24/2019 06:26 P
--- NOTE | 2019-07-24 20:38 | ECGEPIP ---
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
--- NOTE | 2019-07-24 23:33 | ECHO ---
DATE OF PROCEDURE: 07/24/2019 Date of : 1945 Age: 73 Gender: Female. Height: 62 inches Weight: 134 pounds. Body surface area: 1.61 meters squared Inpatient: Progressive care unit (PCU), room 3214 REFERRING PHYSICIAN: Dr. Karey Ambriz INDICATION: Transient ischemic attack (TIA), question cardiac source of embolic material. MEASUREMENTS: 2D Measurements: RV: 2.8 cm LV: 4.9 cm Septum: 0.9 cm Posterior wall: 0.9 cm Aortic root: 3.1 cm LA: 3.4 cm LVEF: 75% Doppler Measurements: AV: 1.5 meters per second LVOT: 0.98 meters per second LVOT diameter: 1.8 cm MV-E: 63, A: 93, E/A ratio: 0.7 Early mitral deceleration time: 215 milliseconds E prime: 4.4, A prime: 9, E/E prime ratio: 14.4 Pulmonary capillary wedge pressure: 17.8 mmHg PV: 0.75 meters per second Pulmonary artery acceleration time: 130 milliseconds PASP: 24 mmHg IVC: 1.4 cm COMMENTS: Normal sinus rhythm without intraventricular conduction disturbance. M-mode and two-dimensional echocardiography was performed with pulsed, continuous wave, color flow and tissue Doppler studies. Normal left ventricular size and wall thickness with hyperkinetic wall motion. Left atrial size within normal limits with Doppler evidence of an impairment of left ventricular (LV) diastolic function as expected for her age with no more than mildly elevated estimated mean left atrial pressure. Normal right heart chamber sizes and motion and estimated pulmonary arterial pressure. Normal inferior vena cava (IVC) size and collapse against an elevated central venous pressure. Slight aortic valvular sclerosis without stenosis or insufficiency. Normal aortic root size. Slight thickening of the mitral valvular apparatus with normal leaflet excursion and no posterior systolic buckling and no more than trace mitral insufficiency. Normal appearing tricuspid valve with mild insufficiency. No apparent intracardiac mass or pericardial effusion.
== END 2019-07-24 15:40 | disposition home or self-care (01) | DRG 69 ==
LOC: EDBD 11:35 → M ED 11:35 → M ED INP 15:21 → M PCU 17:08
PROVIDERS: ADMIT General Practice; ATTEND General Practice
DX: G45.9 Transient cerebral ischemic attack, unspecified (principal); Z88.2 Allergy status to sulfonamides; Z88.8 Allergy status to other drugs, medicaments and biological substances; Z91.013 Allergy to seafood; Z79.899 Other long term (current) drug therapy; Z79.82 Long term (current) use of aspirin; E03.9 Hypothyroidism, unspecified; E78.00 Pure hypercholesterolemia, unspecified; F41.9 Anxiety disorder, unspecified; F32.9 Major depressive disorder, single episode, unspecified; Z96.641 Presence of right artificial hip joint

== ENCOUNTER → 2019-08-26 | Outpatient (CLI) | payer MEDICARE ==
[~2019-08-26] MED LIST changes: +ACET650T3 PO; +BAYE325T12 PO; +MELA5TAB7 PO; +MELATAB7 PO; -OMEP1CAP73 PO; +OMEP20CA4 PO; +OMEP40CA2; -OMEP40CA97; +melatonin PO
[2019-08-26 17:26] LABS: FREE T4 1.28 NG/DL (0.76-1.46); THYROID STIMULATING HORMONE 0.816 uIU/ML (0.358-3.740)
== END ==
LOC: M WUC 13:49
PROVIDERS: ATTEND Nurse Practitioner Family
DX: E89.0 Postprocedural hypothyroidism (principal)

== ENCOUNTER → 2019-10-03 | Outpatient (CLI) | payer MEDICARE ==
[~2019-10-03] MED LIST changes: -OMEP40CA2; +OMEP40CA97
[2019-10-03 12:44] LABS: ALBUMIN 3.8 GM/DL (3.2-5.2); ALT/SGPT 16 U/L (12-78); BILIRUBIN,TOTAL 0.5 MG/DL (0.2-1.0); BLOOD UREA NITROGEN 12 MG/DL (7-18); CALCIUM LEVEL 9.2 MG/DL (8.8-10.2); CARBON DIOXIDE LEVEL 30 MEQ/L (21-32); CHLORIDE LEVEL 110 MEQ/L (98-107); CREATININE FOR GFR 0.79 MG/DL (0.55-1.30); FERRITIN 46 NG/ML (8-252); GLOMERULAR FILTRATION RATE > 60.0 (>39); GLUCOSE, FASTING 89 MG/DL (70-100); POTASSIUM SERUM 4.4 MEQ/L (3.5-5.1); SODIUM LEVEL 143 MEQ/L (136-145); TOTAL PROTEIN 6.7 GM/DL (6.4-8.2)
[2019-10-03 13:08] LABS: BASO % 1.1 % (0.0-1.0); EOS # 0.1 10^3/uL (0.0-0.5); EOS % 3.2 % (0.0-3.0); HEMATOCRIT 47.3 % (36.0-47.0); HEMOGLOBIN 14.5 g/dl (12.0-15.5); LYMPH # 1.3 10^3/uL (1.5-5.0); LYMPH % 34.3 % (24.0-44.0); MEAN CORPUSCULAR HEMOGLOBIN 27.5 pg (27.0-33.0); MEAN CORPUSCULAR VOLUME 89.8 fl (80.0-96.0); MONO # 0.3 10^3/uL (0.0-0.8); MONO % 7.4 % (0.0-5.0); NEUTROPHILS % 53.7 % (36.0-66.0); PLATELET COUNT, AUTOMATED 167 10^3/uL (150-450); RED BLOOD COUNT 5.27 10^6/uL (4.00-5.40); WHITE BLOOD COUNT 3.8 10^3/uL (4.0-10.0)
[2019-10-03 13:16] LABS: MEAN CORPUSCULAR HGB CONC 30.7 g/dl (32.0-36.5)
== END ==
LOC: M WUC 09:19
PROVIDERS: ATTEND Nurse Practitioner Family
DX: R00.2 Palpitations (principal); D64.9 Anemia, unspecified

== ENCOUNTER → 2019-11-27 | Outpatient (CLI) | payer MEDICARE ==
[~2019-11-27] MED LIST changes: +OMEP-172 PO; -OMEP20CA4 PO
--- NOTE | 2019-11-28 09:32 | REP ---
MRI thoracolumbar spine: 11/27, 07/15/2020. Indication: Right hip pain. Comparison: No previous MRI studies are available for direct comparison. Technique: Multiplanar short and long TR sequences of the thoracic and lumbar spines were performed without IV Gadolinium. Findings: There is straightening of the lumbar lordosis and exaggerated thoracic kyphosis. No worrisome marrow or cord signal abnormalities are present. Disc dessication is present throughout. Right lobe hepatic 4 cm cyst is noted. No additional significant paraspinal soft tissue abnormalities are present. Multilevel disc bulging is present throughout the thoracolumbar spine most pronounced at L4/L5 and L5/S1. There is severe bilateral recess narrowing at L4/L5. Moderate neural foraminal narrowing is present at L4/L5. No additional areas of significant spinal canal / neural foraminal narrowing is present. Impression: No acute soft tissue injuries of the thoracolumbar spine. Multilevel degenerative sequelae most pronounced at L4/L5 with severe bilateral recess narrowing/nerve root impingement. There is moderate bilateral neural foraminal narrowing at this level as well. Electronically Signed by Mark Del Valle DO 11/28/2019 09:24 A
== END ==
LOC: M RAD 15:54
PROVIDERS: ATTEND Orthopaedic Surgery
DX: M54.16 Radiculopathy, lumbar region (principal); M48.061 Spinal stenosis, lumbar region without neurogenic claudication; M51.36 Other intervertebral disc degeneration, lumbar region; Z47.1 Aftercare following joint replacement surgery

== ENCOUNTER → 2020-03-15 | Outpatient (CLI) | payer MEDICARE ==
[~2020-03-15] MED LIST changes: +CYCL-707 PO; -CYCL10TA PO; -OMEP-172 PO; +OMEP1CAP73 PO
[2020-03-15 16:39] LABS: FREE T4 1.17 NG/DL (0.76-1.46); THYROID STIMULATING HORMONE 0.223 uIU/ML (0.358-3.740)
== END ==
LOC: M WUC 13:09
PROVIDERS: ATTEND Nurse Practitioner Family
DX: E89.0 Postprocedural hypothyroidism (principal)

== ENCOUNTER → 2020-07-15 | Outpatient (CLI) | payer MEDICARE ==
--- NOTE | 2020-08-18 08:53 | REPPI ---
ABDOMINAL SERIES SUPINE AND UPRIGHT VIEWS WITH FRONTAL VIEW OF THE CHEST REASON FOR EXAM: Generalized abdominal pain and constipation. COMPARISON: Chest 06/25/2019 the latest prior. FINDINGS: The frontal view of the chest is unchanged from the prior chest examination. There are chronic changes status quo with mild basilar fibrotic change and left CP angle blunting all stable. There is no free subdiaphragmatic air. There are no new abnormal lung opacities. The intestinal gas pattern is nonspecific. Gas and stool are seen throughout the colon and within the rectosigmoid region. There is a moderate amount of stool identified. There is no evidence of intestinal obstruction. The organ silhouettes are for the most part obscured by the intestinal content. As far as delineated, they appear to be within normal limits. Surgical clips are seen in the right upper quadrant likely secondary to previous cholecystectomy. Degenerative changes are seen involving the imaged portion of the spine, left hip, and sacroiliac joints. There was a right hip prosthesis in place. IMPRESSION: Nonspecific nondiagnostic exam as described above. MTDD
== END ==
LOC: M PLAIMG 15:13
PROVIDERS: ATTEND Nurse Practitioner Adult Health
DX: R10.9 Unspecified abdominal pain (principal); K59.00 Constipation, unspecified
CPT/HCPCS: 74021; G0463

== ENCOUNTER → 2020-09-12 | Outpatient (REF) | payer MEDICARE ==
[2020-09-13 11:07] LABS: FREE T4 1.47 NG/DL (0.76-1.46); THYROID STIMULATING HORMONE 0.072 uIU/ML (0.358-3.740)
== END ==
LOC: M LAB REF 07-09 10:48
PROVIDERS: ATTEND Nurse Practitioner Family
DX: E89.0 Postprocedural hypothyroidism (principal)

== ENCOUNTER → 2020-09-29 | Outpatient (CLI) | payer MEDICARE ==
[2020-09-29 21:37] LABS: FREE T4 0.96 NG/DL (0.76-1.46); THYROID STIMULATING HORMONE 10.5 uIU/ML (0.358-3.740)
== END ==
LOC: M WUC 14:07
PROVIDERS: ATTEND Nurse Practitioner Family
DX: E89.0 Postprocedural hypothyroidism (principal)

== ENCOUNTER → 2020-11-05 | Outpatient (CLI) | payer MEDICARE ==
[~2020-11-05] MED LIST changes: +ALEV220T22 PO; +FAMO20TA PO
== END ==
LOC: M LABSMTC 13:33
PROVIDERS: ATTEND Anesthesiology
DX: Z01.812 Encounter for preprocedural laboratory examination (principal); Z20.828 Contact with and (suspected) exposure to other viral communicable diseases

== ENCOUNTER 2020-11-10 11:17 | Day surgery (SDC) | payer MEDICARE ==
[~2020-11-10] VITALS: Ht 160 cm; Wt 59.9 kg
[~2020-11-10 11:17] MED LIST changes: +LIDOCAINE 2% 100MG/5ML SDV (FOR ANES.) As Ordered ONE; +propofoL 200 MG/20 ML VIAL As Ordered ONE
[2020-11-10] MEDS: NS 1,000 ML IV ONE (11:50)
--- NOTE | 2020-11-10 12:35 | ROOR ---
Patient Name: Paulette Amin Procedure Date: 11/10/2020 12:20 PM Date of : 1945 Age: 74 Room: [facility] Gender: Female Note Status: Finalized Procedure: Upper Endoscopy + Biopsies Indications: Heartburn Providers: Zheng Cerna MD Referring MD: Shania Villar NP Requesting Provider: Medicines: Monitored Anesthesia Care Complications: No immediate complications. Procedure: Pre-Anesthesia Assessment: - The heart rate, respiratory rate, oxygen saturations, blood pressure, adequacy of pulmonary ventilation, and response to care were monitored throughout the procedure. The Endoscope was introduced through the mouth, and advanced to the second part of duodenum. The upper GI endoscopy was accomplished without difficulty. The patient tolerated the procedure well. Findings: The Z-line was regular and was found 40 cm from the incisors. Localized minimal inflammation characterized by congestion (edema) and erythema was found in the gastric antrum. Biopsies were taken with a cold forceps for Helicobacter pylori testing. The exam of the duodenum was otherwise normal. Impression: - Z-line regular, 40 cm from the incisors. - Mucosal changes suspicious for gastritis. Biopsied. - The examination was otherwise normal. Recommendation: - Patient has a contact number available for emergencies. The signs and symptoms of potential delayed complications were discussed with the patient. Return to normal activities tomorrow. Written discharge instructions were provided to the patient. - High fiber diet. - Discharge patient to home. - Follow an antireflux regimen. - Continue present medications. - Await pathology results. - Telephone GI clinic for pathology results in 1 week. - Return to referring physician. - The findings and recommendations were discussed with the patient. Procedure Code(s): --- Professional --- 18804, Esophagogastroduodenoscopy, flexible, transoral; with biopsy, single or multiple Diagnosis Code(s): --- Professional --- K31.89, Other diseases of stomach and duodenum R12, Heartburn CPT copyright 2019 [employer]. All rights reserved. The codes documented in this report are preliminary and upon remote medical coder review may be revised to meet current compliance requirements. Zheng Cerna MD Zheng Cerna MD 11/10/2020 12:34:47 PM Electronically signed by Zheng Cerna MD Number of Addenda: 0 Note Initiated On: 11/10/2020 12:20 PM Estimated Blood Loss: Estimated blood loss: none.
--- NOTE | 2020-11-10 12:54 | ROOR ---
Patient Name: Paulette Amin Procedure Date: 11/10/2020 12:20 PM Date of : 1945 Age: 74 Room: [facility] Gender: Female Note Status: Finalized Procedure: Total Colonoscopy to Cecum + Biopsy Polypectomy Indications: Chronic idiopathic constipation Providers: Zheng Cerna MD Referring MD: Shania Villar NP Requesting Provider: Medicines: Monitored Anesthesia Care Complications: No immediate complications. Procedure: Pre-Anesthesia Assessment: - The heart rate, respiratory rate, oxygen saturations, blood pressure, adequacy of pulmonary ventilation, and response to care were monitored throughout the procedure. The Colonoscope was introduced through the anus and advanced to the cecum, identified by appendiceal orifice and ileocecal valve. The colonoscopy was performed without difficulty. The patient tolerated the procedure well. The quality of the bowel preparation was excellent. Findings: The perianal and digital rectal examinations were normal. Non-bleeding internal hemorrhoids were found during retroflexion. The hemorrhoids were small and Grade I (internal hemorrhoids that do not prolapse). Multiple small and large-mouthed diverticula were found in the recto-sigmoid colon, sigmoid colon and descending colon. A small polyp was found in the ascending colon. The polyp was sessile. The polyp was removed with a cold biopsy forceps. Resection and retrieval were complete. A small polyp was found at 60 cm proximal to the anus. The polyp was sessile. The polyp was removed with a cold biopsy forceps. Resection and retrieval were complete. The exam was otherwise without abnormality on direct and retroflexion views. Impression: - Non-bleeding internal hemorrhoids. - Diverticulosis in the recto-sigmoid colon, in the sigmoid colon and in the descending colon. - One small polyp in the ascending colon, removed with a cold biopsy forceps. Resected and retrieved. - One small polyp at 60 cm proximal to the anus, removed with a cold biopsy forceps. Resected and retrieved. - The examination was otherwise normal on direct and retroflexion views. - The exam was otherwise normal to the cecum. Recommendation: - Patient has a contact number available for emergencies. The signs and symptoms of potential delayed complications were discussed with the patient. Return to normal activities tomorrow. Written discharge instructions were provided to the patient. - High fiber diet. - Discharge patient to home. - Continue present medications. - Await pathology results. - Telephone GI clinic for pathology results in 1 week. - Return to referring physician. - Repeat colonoscopy is not recommended due to current age (66 years or older) for surveillance. - Return to referring physician. - The findings and recommendations were discussed with the patient. Procedure Code(s): --- Professional --- 23275, Colonoscopy, flexible; with biopsy, single or multiple Diagnosis Code(s): --- Professional --- K64.0, First degree hemorrhoids K63.5, Polyp of colon K59.04, Chronic idiopathic constipation K57.30, Diverticulosis of large intestine without perforation or abscess without bleeding CPT copyright 2019 [employer]. All rights reserved. The codes documented in this report are preliminary and upon taker off drying kiln review may be revised to meet current compliance requirements. Zheng Cerna MD Zheng Cerna MD 11/10/2020 12:53:23 PM Electronically signed by Zheng Cerna MD Number of Addenda: 0 Note Initiated On: 11/10/2020 12:20 PM Estimated Blood Loss: Estimated blood loss: none.
[2020-11-10 13:40] VITALS: BP 135/92
== END 2020-11-10 13:56 | disposition home or self-care (01) ==
LOC: M OPP 11:17
PROVIDERS: ATTEND Internal Medicine Gastroenterology
DX: K59.00 Constipation, unspecified (principal); K64.0 First degree hemorrhoids; K57.90 Diverticulosis of intestine, part unspecified, without perforation or abscess without bleeding; D12.2 Benign neoplasm of ascending colon; D12.4 Benign neoplasm of descending colon; R12 Heartburn

== ENCOUNTER → 2020-12-02 | Outpatient (CLI) | payer MEDICARE, OTHER ==
[~2020-12-02] MED LIST changes: -LIDOCAINE 2% 100MG/5ML SDV (FOR ANES.) As Ordered ONE; -propofoL 200 MG/20 ML VIAL As Ordered ONE
[2020-12-02 17:23] LABS: FREE T4 1.11 NG/DL (0.76-1.46); THYROID STIMULATING HORMONE 1.59 uIU/ML (0.358-3.740)
== END ==
LOC: M WUC 13:34
PROVIDERS: ATTEND Nurse Practitioner Family
DX: E89.0 Postprocedural hypothyroidism (principal)

== ENCOUNTER → 2020-12-09 | Outpatient (REF) | payer MEDICARE, OTHER ==
[2020-12-09 17:17] LABS: HEMATOCRIT 42.2 % (36.0-47.0); HEMOGLOBIN 12.9 g/dl (12.0-15.5); MEAN CORPUSCULAR HEMOGLOBIN 27.9 pg (27.0-33.0); MEAN CORPUSCULAR HGB CONC 30.6 g/dl (32.0-36.5); MEAN CORPUSCULAR VOLUME 91.3 fl (80.0-96.0); PLATELET COUNT, AUTOMATED 204 10^3/uL (150-450); RED BLOOD COUNT 4.62 10^6/uL (4.00-5.40); WHITE BLOOD COUNT 4.2 10^3/uL (4.0-10.0)
[2020-12-09 17:44] LABS: ALBUMIN 3.9 GM/DL (3.2-5.2); ALT/SGPT 13 U/L (12-78); BILIRUBIN,TOTAL 0.7 MG/DL (0.2-1.0); BLOOD UREA NITROGEN 14 MG/DL (7-18); CALCIUM LEVEL 9.5 MG/DL (8.8-10.2); CARBON DIOXIDE LEVEL 31 MEQ/L (21-32); CHLORIDE LEVEL 107 MEQ/L (98-107); CHOLESTEROL LEVEL 231 MG/DL (<200); CHOLESTEROL RISK RATIO 3.253 (<5); CREATININE FOR GFR 0.92 MG/DL (0.55-1.30); FERRITIN 41 NG/ML (8-252); GLOMERULAR FILTRATION RATE > 60.0 (>39); GLUCOSE, FASTING 82 MG/DL (70-100); HDL CHOLESTEROL 71 MG/DL (>40); IRON (FE) 72 UG/DL (50-170); LDL CHOLESTEROL 144 MG/DL (<100); NON-HDL-C 160 MG/DL; PERCENT SATURATION 18.9 % (13.2-45.0); POTASSIUM SERUM 4.3 MEQ/L (3.5-5.1); SODIUM LEVEL 140 MEQ/L (136-145); TOTAL IRON BINDING CAPACITY 381 UG/DL (250-450); TRIGLYCERIDES LEVEL 81 MG/DL (<150)
== END ==
LOC: M WUC 15:50
PROVIDERS: ATTEND Nurse Practitioner Adult Health
DX: R00.2 Palpitations (principal); D64.9 Anemia, unspecified; E03.9 Hypothyroidism, unspecified; E78.5 Hyperlipidemia, unspecified

== ENCOUNTER → 2021-01-05 | Outpatient (CLI) | payer MEDICARE ==
[2021-01-05 14:16] VITALS: BP 142/82
--- NOTE | 2021-01-05 17:20 | REP ---
INDICATION: R92.8 ABN MAMMO L BREAST/US GUIDED BX. COMPARISON: Comparison sonography 15 December 2020.. TECHNIQUE: Targeted sonography and sonographic guidance. FINDINGS: Sonographic guidance is provided to Dr. Mitchell performed ultrasound-guided aspiration and needle biopsy with HydroMARK marker clip placement 12 o'clock position left breast. IMPRESSION: Sonographic guidance. <Electronically signed by Silvino Carvajal > 01/05/21 1456
--- NOTE | 2021-01-05 17:23 | REP ---
INDICATION: R92.8 ABN MAMMO LEFT BREAST/CK CLIP PLACEMT/US GUID BX. Marker clip placement views. COMPARISON: Comparison left breast mammography 09 December 2020 and 15 December 2020. TECHNIQUE: Craniocaudal and mediolateral views of the left breast are obtained. This mammogram was interpreted with the aid of an FDA-approved computer-aided detection system. FINDINGS: CC and mL views of the left breast demonstrate the needle biopsy marker clip in good position the 12 o'clock position where prior mammography showed a well-circumscribed nodule. This nodule is no longer apparent. . : IMPRESSION: Marker clip in good position. Previously noted nodule no longer visible.. RECOMMENDATION: None. Treatment according to biopsy results. <Electronically signed by Silvino Carvajal > 01/05/21 [id number]
--- NOTE | 2021-01-09 15:12 | ROOPDOC ---
[facility] Report Of Operation Report of Operation DATE OF PROCEDURE: 01/05/21 DIAGNOSIS: left breast suspicious lesion PROCEDURE: Ultrasound guided biopsy of left breast suspicious lesion with clip placement SURGEON: Dex Liang BLOOD LOSS: minimal COMPLICATIONS: none Lidocaine 1% LOT [id number] Expiration 02/2024 Sodium Bicarbonate 8.4% LOT [id number] Expiration 02/2021 Hydromark clip LOT [id number] Expiration 08/2023 SHAPE 4 Bx device: BARD [id number] x10 cm LOT [id number] Expiration 09/2023 Informed consent was obtained. The most common risk and possible complications including bleeding, hematoma, bruising, infection, injury to surrounding structures were explained to the patient and the patient expressed understanding. Patient was placed on the bed in the supine position. Appropriate time out was done stating patients name, date of , and the procedure to be performed. The left breast was prepped and draped in the usual fashion. The ultrasound was used to confirm the location of the lesion in the left breast at 12:00 3 centimeters from the nipple. The lesion looks cystic however due to the fact that radiology reported morphologic change of the lesion and solid component associated with the lesion, US guided biopsy will be pursued. Plain Lidocaine 1% and 8.4% sodium bicarbonate 10:1 mix was used to anesthetize the skin, the biopsy site and tissues along the anticipated biopsy tract. Small skin incision was made with blade number 11. BARD Marquee 14G cannula with introducer ([id number]) was inserted through the incision and advanced under the ultrasound guidance to position immediately adjacent to the lesion. Next, the introducer was removed and BARD Marquee 14G biopsy device was places in the cannula. Pre-biopsy imaging, and post-biopsy imaging were captured. After the first pass the lesion was very hard to see which confirms cystic component of the lesion. Another pas was done at the site of previously seen lesion. No additional biopsies were done as the target lesion was no longer visible. Specimen was placed in formaldehyde, labeled with appropriate biopsy site and patients name, and sent to pathology for evaluation. Next, the biopsy device was withdrawn and a clip introducer was inserted into the biopsy site via the cannula. The SHAPE 4 Hydromark clip was deployed under sonographic guidance. Post-clip placement image was captured. Manual pressure over the biopsy cavity and tract was held after the clip introducer was withdrawn. No bleeding was noted upon removal of the pressure. Post-biopsy mammogram of the left breast was obtained and showed clip in expected position. The previous target opacity was no longer visible. Postprocedural dressing was placed. Patient tolerated procedure well. Discharge instructions were discussed with the patient and the patient expressed understanding. DEX LIANG DO Jan 09, 2021 15:12
== END ==
LOC: M WHCPRO 12:42
PROVIDERS: ATTEND Surgery
DX: N63.21 Unspecified lump in the left breast, upper outer quadrant (principal)

== ENCOUNTER → 2021-06-22 | Outpatient (CLI) | payer MEDICARE ==
[~2021-06-22] MED LIST changes: +ISOVUE-300 61% 50ML VIAL As Ordered ONE; +LIDOCAINE 1% MDV 20ML VIAL As Ordered ONE; +OMEP40CA4; -OMEP40CA97; +TRIAMCINOLONE ACETONIDE SUSP 40 MG/ML VIAL (J3301) As Ordered ONE
--- NOTE | 2021-06-23 07:54 | REP ---
INDICATION: UNILAT PRIMARY OSTEOARTHRITIS LT HIP. COMPARISON: None. TECHNIQUE: The procedure was performed under the direct supervision of Dr. Carvajal. The benefits and risks including but not limited to pain infection and bleeding and anaphylaxis were explained to the patient and informed consent was obtained. The left femoral neck was localized using fluoroscopic guidance. The skin was prepped and draped in a sterile fashion. 1% lidocaine was used as a local anesthetic. Using fluoroscopic guidance, and last image hold technology, a 22-gauge spinal needle was inserted and advanced to the femoral neck. 0.5 ml of Isovue-300 was injected to verify placement. Six ml of a solution containing 5 ml of 1% Xylocaine and 1 mL of Kenalog 40 mg was injected. The needle was then removed. The patient tolerated the procedure well and there were no immediate complications. Less than 6 seconds of fluoro time was utilized for this procedure. FINDINGS: None IMPRESSION: Fluoro guidance for left hip injection. <Electronically signed by Jake Mclean > 06/22/21 2035 <Electronically signed by Silvino Carvajal > 06/23/21 [id number]
== END ==
LOC: M RADPRO 11:23
PROVIDERS: ATTEND Orthopaedic Surgery
DX: M16.12 Unilateral primary osteoarthritis, left hip (principal)
CPT/HCPCS: 20610; 77002; J3301; Q9967

== ENCOUNTER → 2021-06-29 | Outpatient (CLI) | payer MEDICARE ==
[~2021-06-29] MED LIST changes: -ISOVUE-300 61% 50ML VIAL As Ordered ONE; -LIDOCAINE 1% MDV 20ML VIAL As Ordered ONE; -TRIAMCINOLONE ACETONIDE SUSP 40 MG/ML VIAL (J3301) As Ordered ONE
--- NOTE | 2021-06-29 13:02 | REP ---
INDICATION: LIVER CYST. COMPARISON: Abdomen/pelvis CT dated 01/11/2011. TECHNIQUE: Multiple ultrasound images of the abdominal right upper quadrant for evaluation of liver cysts. FINDINGS: Upon review of the comparison CT at least 7 hepatic cysts were identified, 4 in the left lobe least 3 in the right lobe. The largest was posteriorly in the right lobe with a bilobed appearance measuring up to 2.8 cm. On the ultrasound study today at least 6 cysts are identified today. There are 3 in the right lobe measuring 2.6 cm, 2.8 cm and 1.2 cm. There are 3 cysts in the midline measuring 1.1 cm, 0.8 cm and 0.9 cm. The hepatic parenchyma is otherwise homogeneous and unremarkable. The patient has a cholecystectomy. There is no intrahepatic or extrahepatic biliary duct dilatation. The common biliary duct measures 5.9 mm in diameter which is in the normal range in a post cholecystectomy patient. The tail of the pancreas is obscured by bowel gas. The visualized portions of the head of the pancreas are unremarkable. The right kidney is low normal size measuring 9.3 x 4.4 x 3.8 cm. There is no right renal calculus, mass, cyst, or hydronephrosis. There is no right upper quadrant abdominal free fluid. IMPRESSION: Multiple small hepatic cysts as described. The pancreatic tail is obscured. Cholecystectomy. For further imaging evaluation of these hepatic cysts, I would recommend follow-up hepatic MRI. <Electronically signed by Gregg Yusuf > 06/29/21 [id number]
== END ==
LOC: M RAD 09:41
PROVIDERS: ATTEND Nurse Practitioner Adult Health
DX: K76.89 Other specified diseases of liver (principal)

== ENCOUNTER → 2021-07-04 | Outpatient (CLI) | payer MEDICARE ==
--- NOTE | 2021-07-04 18:01 | REP ---
INDICATION: S/P LT BENIGN BX 6 MONTH FOLLOW UP ASSESS STABILITY OF LESIO; S/P LT BENIGN BX 6 MONTH F/U ASSESS STABILITY OF LESION. COMPARISON: Comparison mammography January 05, 2021, December 15, 2020, and December 09, 2020. TECHNIQUE: Craniocaudal and mediolateral oblique views of the left breast are obtained and augmented by 3D tomography. A targeted repeat left breast ultrasound is performed. This mammogram was interpreted with the aid of an FDA-approved computer-aided detection system. FINDINGS: On mammography, scattered fibroglandular elements are again noted. There is a needle biopsy marker clip is, HydroMARK type in place in the left breast at approximately 12 o'clock. The metallic component and the hydrophilic component are still visible as an oval-shaped density. The previously noted nodular target appears to be mammographically resolved. No hay density is seen. No architectural distortion or microcalcification is observed. No worrisome skin changes seen. The Volpara volumetric breast density pattern is B. Targeted ultrasound: Targeted left breast ultrasound demonstrates somewhat heterogeneous fibroglandular background echotexture noted in the left breast. At the 12 o'clock site of the previous biopsy, a HydroMARK clip device is seen in place containing a metallic echogenic focus eccentrically located in the cylindrical hydrophilic marker device. No suspicious ultrasound findings. IMPRESSION: BIRADS/ACR category 2 benign left breast mammographic and sonographic findings. This patient's Tyrer-Cuzick lifetime breast cancer risk assessment score is 5.2%. RECOMMENDATION: Repeat screening mammography recommended 1 year (for women over 40). The patient letter being requested is M2. <Electronically signed by Silvino Carvajal > 07/04/21 [id number]
== END ==
LOC: M WHC 13:48
PROVIDERS: ATTEND Surgery
DX: D24.2 Benign neoplasm of left breast (principal); N63.20 Unspecified lump in the left breast, unspecified quadrant
CPT/HCPCS: 76642; 77065; G0279

== ENCOUNTER → 2021-07-14 | Outpatient (REF) | payer MEDICARE | LOC: M SFHCPLAZ 10:10 | PROVIDERS: ATTEND Nurse Practitioner Adult Health | DX: Z53.9 Procedure and treatment not carried out, unspecified reason (principal); K76.89 Other specified diseases of liver ==

== ENCOUNTER → 2021-07-26 | Outpatient (CLI) | payer MEDICARE ==
[2021-07-26 16:19] LABS: BLOOD UREA NITROGEN 11 MG/DL (7-18); CALCIUM LEVEL 8.8 MG/DL (8.8-10.2); CARBON DIOXIDE LEVEL 30 MEQ/L (21-32); CHLORIDE LEVEL 108 MEQ/L (98-107); CREATININE FOR GFR 0.91 MG/DL (0.55-1.30); GLOMERULAR FILTRATION RATE > 60.0 (>39); GLUCOSE, FASTING 87 MG/DL (70-100); POTASSIUM SERUM 3.7 MEQ/L (3.5-5.1); SODIUM LEVEL 141 MEQ/L (136-145)
== END ==
LOC: M PLALAB 12:23
PROVIDERS: ATTEND Nurse Practitioner Adult Health
DX: K76.89 Other specified diseases of liver (principal)

== ENCOUNTER → 2021-07-27 | Outpatient (CLI) | payer MEDICARE ==
[~2021-07-27] MED LIST changes: +PROHANCE 279.3MG/ML 15ML VIAL ONE
--- NOTE | 2021-07-27 11:34 | REP ---
INDICATION: LIVER CYSTS. COMPARISON: Ultrasound 06/29/2021. TECHNIQUE: Multiple sequences obtained in the axial coronal planes prior to and following the intravenous administration of 12 cc ProHance. FINDINGS: Multiple cysts are scattered throughout the liver. These do not demonstrate abnormal enhancement. The size of these cysts ranges from subcentimeter diameter to the largest in the posterior segment of the right lobe measuring 3.0 x 1.9 cm. There has been a prior cholecystectomy. There is no evidence of intrahepatic or extrahepatic biliary dilatation. Spleen is normal in size with no intrinsic abnormality. The adrenal glands are normal. No pancreatic mass is seen and there is no evidence of pancreatic duct dilatation. The kidneys demonstrate no mass or hydronephrosis. The abdominal aorta is normal in caliber. There is no adenopathy or free fluid. IMPRESSION: Multiple benign cysts in the liver as discussed above. <Electronically signed by Gregg Lazaro > 07/27/21 4711
== END ==
LOC: M PLAIMG 09:48
PROVIDERS: ATTEND Nurse Practitioner Adult Health
DX: K76.89 Other specified diseases of liver (principal)
CPT/HCPCS: 74183; A9576

== ENCOUNTER → 2021-08-18 | Outpatient (CLI) | payer MEDICARE ==
[~2021-08-18] MED LIST changes: -PROHANCE 279.3MG/ML 15ML VIAL ONE
[2021-08-18 17:26] LABS: FOLATE 8.8 NG/ML
== END ==
LOC: M WUC 14:12
PROVIDERS: ATTEND Psychiatry & Neurology Neurology
DX: E53.8 Deficiency of other specified B group vitamins (principal); R26.89 Other abnormalities of gait and mobility

== ENCOUNTER → 2021-09-12 | Outpatient (CLI) | payer MEDICARE ==
[2021-09-12 17:01] LABS: FREE T4 0.89 NG/DL (0.76-1.46); THYROID STIMULATING HORMONE 8.43 uIU/ML (0.358-3.740)
== END ==
LOC: M WUC 14:19
PROVIDERS: ATTEND Internal Medicine Endocrinology, Diabetes & Metabolism
DX: E89.0 Postprocedural hypothyroidism (principal)

== ENCOUNTER → 2021-10-07 | Outpatient (REF) | payer MEDICARE | LOC: M LAB REF 17:19 | PROVIDERS: ATTEND Physician Assistant | DX: D23.22 Other benign neoplasm of skin of left ear and external auricular canal (principal) ==

== ENCOUNTER → 2021-12-07 | Outpatient (CLI) | payer MEDICARE ==
[~2021-12-07] MED LIST changes: +ISOVUE-300 61% 50ML VIAL As Ordered ONE; +LIDOCAINE 1% MDV 20ML VIAL As Ordered ONE; +methylPREDNISolone SUSP 40MG/ML 1ML VIAL (DEPO MEDROL) As Ordered ONE
== END ==
LOC: M RADPRO 10:35
PROVIDERS: ATTEND Physician Assistant
DX: M16.12 Unilateral primary osteoarthritis, left hip (principal)
CPT/HCPCS: 20610; 77002; J1030; Q9967

== ENCOUNTER → 2022-01-26 | Outpatient (CLI) | payer MEDICARE | LOC: M RADPRO 15:26 | PROVIDERS: ATTEND Physician Assistant | DX: M16.12 Unilateral primary osteoarthritis, left hip (principal) | CPT/HCPCS: 20610; 77002; J1030; Q9967 ==

== ENCOUNTER → 2022-02-01 | Outpatient (CLI) | payer MEDICARE ==
[~2022-02-01] MED LIST changes: -ISOVUE-300 61% 50ML VIAL As Ordered ONE; -LIDOCAINE 1% MDV 20ML VIAL As Ordered ONE; -methylPREDNISolone SUSP 40MG/ML 1ML VIAL (DEPO MEDROL) As Ordered ONE
== END ==
LOC: M WHC 14:57
PROVIDERS: ATTEND Nurse Practitioner Adult Health
DX: Z12.31 Encounter for screening mammogram for malignant neoplasm of breast (principal)

== ENCOUNTER → 2022-02-07 | Outpatient (CLI) | payer MEDICARE ==
[2022-02-07 13:50] LABS: FREE T4 1.04 NG/DL (0.76-1.46); THYROID STIMULATING HORMONE 2.59 uIU/ML (0.358-3.740)
== END ==
LOC: M WUC 09:41
PROVIDERS: ATTEND Nurse Practitioner Family
DX: E89.0 Postprocedural hypothyroidism (principal)

== ENCOUNTER → 2022-03-15 | Outpatient (REF) | payer MEDICARE ==
[2022-03-16 10:30] LABS: APPEARANCE, URINE CLEAR (CLEAR); BACTERIA, URINE AUTO 1+ (NEGATIVE); BILIRUBIN, URINE AUTO NEGATIVE (NEGATIVE); BLOOD, URINE BLOOD 1+ (NEGATIVE); COLOR, URINE YELLOW (YELLOW); GLUCOSE, URINE (UA) AUTO NEGATIVE (NEGATIVE); KETONE, URINE AUTO NEGATIVE (NEGATIVE); LEUKOCYTE ESTERASE, URINE AUTO 2+ (NEGATIVE); NITRITE, URINE AUTO NEGATIVE (NEGATIVE); PROTEIN, URINE AUTO NEGATIVE (NEGATIVE); RBC, URINE AUTO 8 /HPF (0-3); SPECIFIC GRAVITY URINE AUTO 1.009 (1.002-1.035); SQUAMOUS EPITHELIAL CELL UR AU 0 /HPF (0-6); TRANSITIONAL EPITHELIAL AUTO <1 /HPF; UROBILINOGEN, URINE AUTO 0.2 mg/dL (0.0-2.0); WBC, URINE AUTO 89 /HPF (0-3)
== END ==
LOC: M SFHCPLAZ 10:05
PROVIDERS: ATTEND Physician Assistant
DX: R39.9 Unspecified symptoms and signs involving the genitourinary system (principal)

== ENCOUNTER → 2022-04-10 | Outpatient (REF) | payer MEDICARE ==
[2022-04-10 19:23] LABS: APPEARANCE, URINE CLEAR (CLEAR); BACTERIA, URINE AUTO NEGATIVE (NEGATIVE); BILIRUBIN, URINE AUTO NEGATIVE (NEGATIVE); BLOOD, URINE BLOOD 1+ (NEGATIVE); COLOR, URINE YELLOW (YELLOW); GLUCOSE, URINE (UA) AUTO NEGATIVE (NEGATIVE); KETONE, URINE AUTO NEGATIVE (NEGATIVE); LEUKOCYTE ESTERASE, URINE AUTO NEGATIVE (NEGATIVE); NITRITE, URINE AUTO NEGATIVE (NEGATIVE); PROTEIN, URINE AUTO NEGATIVE (NEGATIVE); RBC, URINE AUTO 0 /HPF (0-3); SQUAMOUS EPITHELIAL CELL UR AU 0 /HPF (0-6); UROBILINOGEN, URINE AUTO 0.2 mg/dL (0.0-2.0); WBC, URINE AUTO 0 /HPF (0-3)
== END ==
LOC: M SFHCPLAZ 17:32
PROVIDERS: ATTEND Internal Medicine
DX: R31.9 Hematuria, unspecified (principal)

== ENCOUNTER → 2022-06-13 | Outpatient (CLI) | payer MEDICARE ==
[2022-06-13 15:40] LABS: BASO % 0.7 % (0.0-1.0); EOS % 0.5 % (0.0-3.0); HEMATOCRIT 39.9 % (36.0-47.0); HEMOGLOBIN 12.9 g/dl (12.0-15.5); LYMPH # 1.4 10^3/uL (1.5-5.0); LYMPH % 22.2 % (24.0-44.0); MEAN CORPUSCULAR HEMOGLOBIN 29.5 pg (27.0-33.0); MEAN CORPUSCULAR HGB CONC 32.3 g/dl (32.0-36.5); MEAN CORPUSCULAR VOLUME 91.3 fl (80.0-96.0); MONO # 0.5 10^3/uL (0.0-0.8); MONO % 7.4 % (2.0-8.0); NEUTROPHILS # 4.2 10^3/uL (1.5-8.5); NEUTROPHILS % 68.9 % (36.0-66.0); PLATELET COUNT, AUTOMATED 204 10^3/uL (150-450); RED BLOOD COUNT 4.37 10^6/uL (4.00-5.40); WHITE BLOOD COUNT 6.1 10^3/uL (4.0-10.0)
[2022-06-13 16:48] LABS: ALBUMIN 4.4 GM/DL (3.2-5.2); ALT/SGPT 17 U/L (12-78); BILIRUBIN,TOTAL 0.6 MG/DL (0.2-1.0); BLOOD UREA NITROGEN 10 MG/DL (7-18); CALCIUM LEVEL 9.4 MG/DL (8.8-10.2); CARBON DIOXIDE LEVEL 31 MEQ/L (21-32); CHLORIDE LEVEL 104 MEQ/L (98-107); CREATININE FOR GFR 0.79 MG/DL (0.55-1.30); GLOMERULAR FILTRATION RATE > 60.0 (>39); GLUCOSE, FASTING 95 MG/DL (70-100); LIPASE 62 U/L (73-393); POTASSIUM SERUM 3.6 MEQ/L (3.5-5.1); SODIUM LEVEL 139 MEQ/L (136-145); TOTAL PROTEIN 7.1 GM/DL (6.4-8.2)
[2022-06-13 17:44] LABS: ERYTHROCYTE SEDIMENTATION RATE 5 mm/hr (0-30)
== END ==
LOC: M PLAIMG 12:47
PROVIDERS: ATTEND Physician Assistant
DX: R35.0 Frequency of micturition (principal); R68.81 Early satiety; R10.30 Lower abdominal pain, unspecified; R63.4 Abnormal weight loss; R10.13 Epigastric pain; M16.12 Unilateral primary osteoarthritis, left hip; Z96.641 Presence of right artificial hip joint

== ENCOUNTER → 2022-10-26 | Outpatient (CLI) | payer MEDICARE ==
[2022-10-26 11:57] LABS: HEMATOCRIT 40.3 % (36.0-47.0); MEAN CORPUSCULAR HEMOGLOBIN 29.1 pg (27.0-33.0); MEAN CORPUSCULAR HGB CONC 32.3 g/dl (32.0-36.5); MEAN CORPUSCULAR VOLUME 90.2 fl (80.0-96.0); PLATELET COUNT, AUTOMATED 197 10^3/uL (150-450); RED BLOOD COUNT 4.47 10^6/uL (4.00-5.40); WHITE BLOOD COUNT 6.3 10^3/uL (4.0-10.0)
[2022-10-26 12:44] LABS: ALBUMIN 4.2 G/DL (3.2-5.2); ALKALINE PHOSPHATASE 85 U/L (46-116); ALT/SGPT 12 U/L (7.0-40); AST/SGOT 14 U/L (<34); BILIRUBIN,TOTAL 0.7 MG/DL (0.3-1.2); BLOOD UREA NITROGEN 13 MG/DL (9-23); CALCIUM LEVEL 9.4 MG/DL (8.3-10.6); CARBON DIOXIDE LEVEL 27 MMOL/L (20-31); CHLORIDE LEVEL 100 MMOL/L (98-107); CREATININE FOR GFR 0.73 MG/DL (0.55-1.30); GLOMERULAR FILTRATION RATE > 60.0 (>39); GLUCOSE, FASTING 95 MG/DL (74-106); POTASSIUM SERUM 4.2 MMOL/L (3.5-5.1); SODIUM LEVEL 136 MMOL/L (136-145); TOTAL PROTEIN 6.8 G/DL (5.7-8.2)
[2022-10-26 12:49] LABS: INR 0.89; PROTHROMBIN TIME 12.3 SECONDS (12.5-14.5)
[2022-10-26 13:33] LABS: ERYTHROCYTE SEDIMENTATION RATE 6 mm/hr (0-30)
== END ==
LOC: M RAD 10:37
PROVIDERS: ATTEND Orthopaedic Surgery
DX: M16.12 Unilateral primary osteoarthritis, left hip (principal)

== ENCOUNTER → 2022-11-30 | Outpatient (CLI) | payer MEDICARE ==
[2022-11-30 13:16] LABS: HEMATOCRIT 33.2 % (36.0-47.0); HEMOGLOBIN 10.3 g/dl (12.0-15.5); MEAN CORPUSCULAR HEMOGLOBIN 28.5 pg (27.0-33.0); MEAN CORPUSCULAR VOLUME 91.7 fl (80.0-96.0); PLATELET COUNT, AUTOMATED 303 10^3/uL (150-450); RED BLOOD COUNT 3.62 10^6/uL (4.00-5.40); WHITE BLOOD COUNT 6.3 10^3/uL (4.0-10.0)
[2022-11-30 13:53] LABS: LIPASE 20 U/L (12-53)
[2022-11-30 13:58] LABS: ALBUMIN 3.5 G/DL (3.2-5.2); ALKALINE PHOSPHATASE 112 U/L (46-116); ALT/SGPT < 9 U/L (7.0-40); AST/SGOT 11 U/L (<34); BILIRUBIN,TOTAL 0.4 MG/DL (0.3-1.2); BLOOD UREA NITROGEN 13 MG/DL (9-23); CALCIUM LEVEL 9.1 MG/DL (8.3-10.6); CARBON DIOXIDE LEVEL 28 MMOL/L (20-31); CHLORIDE LEVEL 104 MMOL/L (98-107); CREATININE FOR GFR 0.69 MG/DL (0.55-1.30); GLOMERULAR FILTRATION RATE > 60.0 (>39); GLUCOSE, FASTING 88 MG/DL (74-106); POTASSIUM SERUM 3.9 MMOL/L (3.5-5.1); SODIUM LEVEL 141 MMOL/L (136-145); TOTAL PROTEIN 6.2 G/DL (5.7-8.2)
== END ==
LOC: M RAD 11:33
PROVIDERS: ATTEND Family Medicine
DX: M79.662 Pain in left lower leg (principal)

== ENCOUNTER → 2023-02-01 | Outpatient (CLI) | payer MEDICARE ==
[2023-02-01 13:47] LABS: THYROID STIMULATING HORMONE 1.543 uIU/ML (0.55-4.78)
[2023-02-01 13:51] LABS: FREE T4 1.06 NG/DL (0.89-1.76)
== END ==
LOC: M WUC 10:04
PROVIDERS: ATTEND Nurse Practitioner Family
DX: E89.0 Postprocedural hypothyroidism (principal)

== ENCOUNTER → 2023-02-02 | Outpatient (CLI) | payer MEDICARE | LOC: M WHC 12:57 | PROVIDERS: ATTEND Nurse Practitioner Adult Health | DX: Z12.31 Encounter for screening mammogram for malignant neoplasm of breast (principal) ==

== ENCOUNTER 2023-05-03 16:08 | Emergency (ER) | payer MEDICARE ==
[~2023-05-03] VITALS: Ht 162.6 cm; Wt 56.4 kg
[2023-05-03] MEDS ORDERED: VITA100093 PO (16:20)
[2023-05-03] MEDS ORDERED: CVS-161 PO (16:20)
[2023-05-03] MEDS ORDERED: DONE5TAB82 (16:20)
[2023-05-03] MEDS ORDERED: EQL50TAB2 PO (16:20)
[2023-05-03] MEDS ORDERED: OMEP40CA5 (16:20)
[2023-05-03] MEDS ORDERED: ASPIRIN 81MG CHEW TABLET PO ONE (16:40)
[2023-05-03 17:01] LABS: BASO # 0.1 10^3/uL (0.0-0.2); EOS # 0.1 10^3/uL (0.0-0.5); EOS % 2.4 % (0.0-3.0); HEMATOCRIT 37.3 % (36.0-47.0); LYMPH # 1.5 10^3/uL (1.5-5.0); LYMPH % 25.3 % (24.0-44.0); MEAN CORPUSCULAR HEMOGLOBIN 28.8 pg (27.0-33.0); MEAN CORPUSCULAR HGB CONC 32.2 g/dl (32.0-36.5); MEAN CORPUSCULAR VOLUME 89.4 fl (80.0-96.0); MONO # 0.5 10^3/uL (0.0-0.8); MONO % 8.8 % (2.0-8.0); NEUTROPHILS # 3.6 10^3/uL (1.5-8.5); NEUTROPHILS % 61.3 % (36.0-66.0); PLATELET COUNT, AUTOMATED 200 10^3/uL (150-450); RED BLOOD COUNT 4.17 10^6/uL (4.00-5.40); WHITE BLOOD COUNT 5.9 10^3/uL (4.0-10.0)
[2023-05-03 17:16] VITALS: TEMP 96.6
[2023-05-03 17:34] LABS: ALBUMIN 4.1 G/DL (3.2-5.2); ALKALINE PHOSPHATASE 80 U/L (46-116); ALT/SGPT 9 U/L (7.0-40); AST/SGOT < 8 U/L (<34); BILIRUBIN,DIRECT 0.2 MG/DL (<0.4); BILIRUBIN,TOTAL 0.5 MG/DL (0.3-1.2); BLOOD UREA NITROGEN 11 MG/DL (9-23); CALCIUM LEVEL 9.1 MG/DL (8.3-10.6); CARBON DIOXIDE LEVEL 27 MMOL/L (20-31); CHLORIDE LEVEL 104 MMOL/L (98-107); CK-MB VALUE MASS < 1.0 NG/ML (<3.6); CPK CREATINE PHOSPHOKINASE 61 U/L (34-145); CREATININE FOR GFR 0.77 MG/DL (0.55-1.30); GLOMERULAR FILTRATION RATE > 60.0 (>39); GLUCOSE, FASTING 88 MG/DL (74-106); INR 0.95; MB/CK RELATIVE INDEX 1.63 (< OR =4); POTASSIUM SERUM 3.8 MMOL/L (3.5-5.1); PROTHROMBIN TIME 12.9 SECONDS (12.5-14.5); SODIUM LEVEL 137 MMOL/L (136-145); TOTAL PROTEIN 6.4 G/DL (5.7-8.2)
[2023-05-03 17:35] LABS: PARTIAL THROMBOPLASTIN TIME 23.5 SECONDS (24.8-34.2)
[2023-05-03] MEDS ORDERED: **hydrALAZINE** 10 MG TAB PO ONE (17:35)
[2023-05-03 18:04] VITALS: BP 169/88
[2023-05-03] MEDS ORDERED: ISOVUE-370 76% 100ML VIAL As Ordered ONE (18:16)
[2023-05-03 18:36] LABS: CK-MB VALUE MASS < 1.0 NG/ML (<3.6); CPK CREATINE PHOSPHOKINASE 59 U/L (34-145); MB/CK RELATIVE INDEX 1.69 (< OR =4)
[2023-05-03 20:00] VITALS: BP 173/72; O2SAT 98
[2023-05-03] MEDS ORDERED: amLODIPine 5 MG TAB PO ONE (20:10)
[2023-05-03] MEDS ORDERED: AMLO25TA PO (20:13)
== END 2023-05-03 20:44 | disposition home or self-care (01) ==
LOC: M ED 16:08
DX: R07.9 Chest pain, unspecified (principal); I10 Essential (primary) hypertension; E03.9 Hypothyroidism, unspecified; E78.5 Hyperlipidemia, unspecified; F41.9 Anxiety disorder, unspecified; F32.A Depression, unspecified; K58.9 Irritable bowel syndrome, unspecified; Z88.2 Allergy status to sulfonamides; Z88.8 Allergy status to other drugs, medicaments and biological substances; Z91.010 Allergy to peanuts; Z79.810 Long term (current) use of selective estrogen receptor modulators (SERMs); Z79.899 Other long term (current) drug therapy
CPT/HCPCS: 36415; 71046; 71275; 74177; 80048; 80076; 82550; 82553; 83690; 84484; 85025; 85610; 85730; 93005; 93041; 94760; 99285; Q9967

== ENCOUNTER → 2023-05-18 | Outpatient (CLI) | payer MEDICARE ==
[~2023-05-18] MED LIST changes: +AMLO25TA PO; +CVS-161 PO; +DONE5TAB82; +EQL50TAB2 PO; +OMEP40CA5; +VITA100093 PO
[2023-05-18 16:36] LABS: PLATELET COUNT, AUTOMATED 199 10^3/uL (150-450)
[2023-05-18 16:57] LABS: COLLAGEN EPINEPHRINE 107 SECONDS (74-162)
[2023-05-18 17:00] LABS: INR 0.87
[2023-05-18 17:01] LABS: PARTIAL THROMBOPLASTIN TIME 24.5 SECONDS (24.8-34.2)
== END ==
LOC: M WUC 13:58
PROVIDERS: ATTEND Orthopaedic Surgery
DX: Z01.818 Encounter for other preprocedural examination (principal)

== ENCOUNTER → 2023-07-09 | Outpatient (CLI) | payer MEDICARE ==
[2023-07-09 20:17] LABS: BASO # 0.1 10^3/uL (0.0-0.2); BASO % 0.9 % (0.0-1.0); EOS # 0.1 10^3/uL (0.0-0.5); EOS % 1.3 % (0.0-3.0); HEMATOCRIT 35.7 % (36.0-47.0); HEMOGLOBIN 11.4 g/dl (12.0-15.5); LYMPH # 1.8 10^3/uL (1.5-5.0); MEAN CORPUSCULAR HEMOGLOBIN 28.6 pg (27.0-33.0); MEAN CORPUSCULAR HGB CONC 31.9 g/dl (32.0-36.5); MEAN CORPUSCULAR VOLUME 89.7 fl (80.0-96.0); MONO # 0.7 10^3/uL (0.0-0.8); MONO % 9.1 % (2.0-8.0); NEUTROPHILS # 5.2 10^3/uL (1.5-8.5); NEUTROPHILS % 65.4 % (36.0-66.0); PLATELET COUNT, AUTOMATED 219 10^3/uL (150-450); RED BLOOD COUNT 3.98 10^6/uL (4.00-5.40); WHITE BLOOD COUNT 7.9 10^3/uL (4.0-10.0)
[2023-07-09 20:21] LABS: C REACTIVE PROTEIN QUANTITATIV < 0.40 MG/DL (<1.0)
[2023-07-09 20:22] LABS: BLOOD UREA NITROGEN 14 MG/DL (9-23); CALCIUM LEVEL 8.9 MG/DL (8.3-10.6); CARBON DIOXIDE LEVEL 31 MMOL/L (20-31); CHLORIDE LEVEL 102 MMOL/L (98-107); CREATININE FOR GFR 0.93 MG/DL (0.55-1.30); GLOMERULAR FILTRATION RATE > 60.0 (>39); GLUCOSE, FASTING 92 MG/DL (74-106); POTASSIUM SERUM 4.1 MMOL/L (3.5-5.1); SODIUM LEVEL 138 MMOL/L (136-145)
[2023-07-09 20:32] LABS: ERYTHROCYTE SEDIMENTATION RATE 6 mm/hr (0-30)
== END ==
LOC: M WUC 15:08
PROVIDERS: ATTEND Ophthalmology
DX: M31.6 Other giant cell arteritis (principal)

== ENCOUNTER → 2023-08-16 | Outpatient (CLI) | payer MEDICARE | LOC: M PLARAD 14:35 | PROVIDERS: ATTEND Ophthalmology | DX: G43.909 Migraine, unspecified, not intractable, without status migrainosus (principal) ==

== ENCOUNTER → 2023-09-19 | Outpatient (CLI) | payer MEDICARE ==
[2023-09-19 17:54] LABS: HEMATOCRIT 39.9 % (36.0-47.0); HEMOGLOBIN 12.7 g/dl (12.0-15.5); MEAN CORPUSCULAR HEMOGLOBIN 28.3 pg (27.0-33.0); MEAN CORPUSCULAR HGB CONC 31.8 g/dl (32.0-36.5); MEAN CORPUSCULAR VOLUME 88.9 fl (80.0-96.0); PLATELET COUNT, AUTOMATED 216 10^3/uL (150-450); RED BLOOD COUNT 4.49 10^6/uL (4.00-5.40); WHITE BLOOD COUNT 6.3 10^3/uL (4.0-10.0)
[2023-09-19 18:25] LABS: ALBUMIN 4.1 G/DL (3.2-5.2); ALKALINE PHOSPHATASE 93 U/L (46-116); ALT/SGPT < 9 U/L (7.0-40); AST/SGOT < 8 U/L (<34); BILIRUBIN,TOTAL 0.5 MG/DL (0.3-1.2); BLOOD UREA NITROGEN 11 MG/DL (9-23); CARBON DIOXIDE LEVEL 30 MMOL/L (20-31); CHLORIDE LEVEL 102 MMOL/L (98-107); CREATININE FOR GFR 0.75 MG/DL (0.55-1.30); GLOMERULAR FILTRATION RATE > 60.0 (>39); GLUCOSE, FASTING 88 MG/DL (74-106); POTASSIUM SERUM 3.8 MMOL/L (3.5-5.1); SODIUM LEVEL 138 MMOL/L (136-145); THYROID STIMULATING HORMONE 0.807 uIU/ML (0.55-4.78); TOTAL PROTEIN 6.8 G/DL (5.7-8.2)
== END ==
LOC: M PLAIMG 15:59 → M PLALAB 15:59
PROVIDERS: ATTEND Nurse Practitioner Adult Health
DX: K59.00 Constipation, unspecified (principal); K57.30 Diverticulosis of large intestine without perforation or abscess without bleeding; R10.84 Generalized abdominal pain; E03.9 Hypothyroidism, unspecified

== ENCOUNTER → 2023-09-28 | Outpatient (CLI) | payer MEDICARE | LOC: M PLAIMG 08:22 | PROVIDERS: ATTEND Nurse Practitioner Adult Health | DX: R10.9 Unspecified abdominal pain (principal) ==

== ENCOUNTER → 2023-12-03 | Outpatient (CLI) | payer MEDICARE ==
[2023-12-03 16:43] LABS: FREE T4 1.27 NG/DL (0.89-1.76); THYROID STIMULATING HORMONE 0.958 uIU/ML (0.55-4.78)
== END ==
LOC: M WUC 13:54
PROVIDERS: ATTEND Internal Medicine Endocrinology, Diabetes & Metabolism
DX: E89.0 Postprocedural hypothyroidism (principal)

== ENCOUNTER → 2023-12-26 | Outpatient (REF) | payer MEDICARE ==
[2023-12-26 17:39] LABS: APPEARANCE, URINE CLEAR (CLEAR); BACTERIA, URINE AUTO NEGATIVE (NEGATIVE); BILIRUBIN, URINE AUTO NEGATIVE (NEGATIVE); BLOOD, URINE BLOOD 1+ (NEGATIVE); COLOR, URINE YELLOW (YELLOW); GLUCOSE, URINE (UA) AUTO NEGATIVE (NEGATIVE); KETONE, URINE AUTO NEGATIVE (NEGATIVE); LEUKOCYTE ESTERASE, URINE AUTO NEGATIVE (NEGATIVE); NITRITE, URINE AUTO NEGATIVE (NEGATIVE); PROTEIN, URINE AUTO NEGATIVE (NEGATIVE); RBC, URINE AUTO 2 /HPF (0-3); SPECIFIC GRAVITY URINE AUTO 1.008 (1.002-1.035); SQUAMOUS EPITHELIAL CELL UR AU 0 /HPF (0-6); UROBILINOGEN, URINE AUTO 0.2 mg/dL (0.0-2.0); WBC, URINE AUTO 1 /HPF (0-3)
== END ==
LOC: M SFHCPLAZ 17:05
PROVIDERS: ATTEND Physician Assistant Medical
DX: R35.0 Frequency of micturition (principal)

== ENCOUNTER → 2024-01-24 | Outpatient (REF) | payer MEDICARE ==
[2024-01-24 17:32] LABS: APPEARANCE, URINE CLEAR (CLEAR); BACTERIA, URINE AUTO NEGATIVE (NEGATIVE); BILIRUBIN, URINE AUTO NEGATIVE (NEGATIVE); BLOOD, URINE BLOOD NEGATIVE (NEGATIVE); COLOR, URINE YELLOW (YELLOW); GLUCOSE, URINE (UA) AUTO NEGATIVE (NEGATIVE); KETONE, URINE AUTO NEGATIVE (NEGATIVE); LEUKOCYTE ESTERASE, URINE AUTO NEGATIVE (NEGATIVE); NITRITE, URINE AUTO NEGATIVE (NEGATIVE); PROTEIN, URINE AUTO NEGATIVE (NEGATIVE); RBC, URINE AUTO 2 /HPF (0-3); SPECIFIC GRAVITY URINE AUTO 1.012 (1.002-1.035); SQUAMOUS EPITHELIAL CELL UR AU 0 /HPF (0-6); WBC, URINE AUTO 1 /HPF (0-3)
== END ==
LOC: M SMT 17:02
PROVIDERS: ATTEND Nurse Practitioner Family
DX: R31.29 Other microscopic hematuria (principal)

== ENCOUNTER 2024-04-14 08:36 | Day surgery (SDC) | payer MEDICARE ==
[~2024-04-14] VITALS: Ht 160 cm; Wt 55.4 kg
[~2024-04-14 08:36] MED LIST changes: +B6/F1TAB PO; -DONE5TAB82; +DONE5TAB82 PO; +GOOD200C PO; -OMEP40CA5; +OMEP40CA5 PO; +OXYB5TAB14 PO
[2024-04-14] MEDS: NS 1,000 ML IV ONE (09:35)
[2024-04-14] MEDS ORDERED: LIDOCAINE 2% 100MG/5ML SDV (FOR ANES.) As Ordered ONE (09:42)
[2024-04-14] MEDS ORDERED: propofoL 200 MG/20 ML VIAL As Ordered ONE (09:42)
[2024-04-14] MEDS ORDERED: fentaNYL 100 MCG/2 ML INJECTION As Ordered ONE (09:43)
[2024-04-14 10:24] VITALS: TEMP 96.7
[2024-04-14 10:46] VITALS: BP 184/83; O2SAT 97
== END 2024-04-14 11:13 | disposition home or self-care (01) ==
LOC: M OPP 08:36
PROVIDERS: ATTEND Internal Medicine Gastroenterology
DX: Z12.11 Encounter for screening for malignant neoplasm of colon (principal); Z12.12 Encounter for screening for malignant neoplasm of rectum; K44.9 Diaphragmatic hernia without obstruction or gangrene; K31.7 Polyp of stomach and duodenum; K64.0 First degree hemorrhoids; K57.30 Diverticulosis of large intestine without perforation or abscess without bleeding; K22.89 Other specified disease of esophagus; R12 Heartburn; Z90.49 Acquired absence of other specified parts of digestive tract; E03.9 Hypothyroidism, unspecified; Z86.73 Personal history of transient ischemic attack (TIA), and cerebral infarction without residual deficits; K76.89 Other specified diseases of liver; Z79.899 Other long term (current) drug therapy; Z79.890 Hormone replacement therapy; Z88.2 Allergy status to sulfonamides; Z88.8 Allergy status to other drugs, medicaments and biological substances; Z90.710 Acquired absence of both cervix and uterus; Z91.018 Allergy to other foods
CPT/HCPCS: 43239; 88305; G0121; J3010

== ENCOUNTER 2024-05-09 04:35 | Emergency (ER) | payer MEDICARE ==
[~2024-05-09] VITALS: Ht 160 cm; Wt 53.6 kg
[2024-05-09] MEDS ORDERED: LIDOCAINE 1% SDV 30ML VIAL SC SCH (07:50)
[2024-05-09] MEDS: ACETAMINOPHEN TAB 650MG DOSE (2X325MG) PO ONE (08:11)
[2024-05-09] MEDS: LIDOCAINE 1% MDV 20ML VIAL SC ONE (08:11)
[2024-05-09] MEDS ORDERED: BACI500O8 TOP (09:48)
[2024-05-09] MEDS: BOOSTRIX VACCINE (TETANUS/DIPHTH/ACEL. PERTUSSIS) 0.5ML SYR IM.IMMUN ONE (10:00)
[2024-05-09 10:16] VITALS: BP 167/75; TEMP 97.1; O2SAT 97
== END 2024-05-09 10:17 | disposition home or self-care (01) ==
LOC: M ED 04:35
DX: S51.011A Laceration without foreign body of right elbow, initial encounter (principal); W19.XXXA Unspecified fall, initial encounter; M51.26 Other intervertebral disc displacement, lumbar region; M48.061 Spinal stenosis, lumbar region without neurogenic claudication; Y92.009 Unspecified place in unspecified non-institutional (private) residence as the place of occurrence of the external cause; Y93.89 Activity, other specified; Y99.9 Unspecified external cause status; Z88.2 Allergy status to sulfonamides; Z88.8 Allergy status to other drugs, medicaments and biological substances; Z91.018 Allergy to other foods; Z23 Encounter for immunization; Z79.1 Long term (current) use of non-steroidal anti-inflammatories (NSAID); Z79.890 Hormone replacement therapy; Z79.899 Other long term (current) drug therapy

== ENCOUNTER → 2024-11-28 | Outpatient (REF) | payer MEDICARE ==
[~2024-11-28] MED LIST changes: +BACI500O8 TOP; -BAYE325T12 PO; +BAYE325T2 PO; -GOOD200C PO; +IBUP200C35 PO
[2024-11-28 18:19] LABS: APPEARANCE, URINE HAZY (CLEAR); BACTERIA, URINE AUTO NEGATIVE (NEGATIVE); BILIRUBIN, URINE AUTO NEGATIVE (NEGATIVE); BLOOD, URINE BLOOD NEGATIVE (NEGATIVE); COLOR, URINE AMBER (YELLOW); GLUCOSE, URINE (UA) AUTO NEGATIVE (NEGATIVE); KETONE, URINE AUTO TRACE mg/dL (NEGATIVE); LEUKOCYTE ESTERASE, URINE AUTO NEGATIVE (NEGATIVE); MUCUS, URINE SMALL (NEGATIVE); NITRITE, URINE AUTO NEGATIVE (NEGATIVE); PROTEIN, URINE AUTO NEGATIVE (NEGATIVE); RBC, URINE AUTO 3 /HPF (0-3); SPECIFIC GRAVITY URINE AUTO 1.019 (1.002-1.035); SQUAMOUS EPITHELIAL CELL UR AU 3 /HPF (0-6); WBC, URINE AUTO 1 /HPF (0-3)
== END ==
LOC: M SMT 17:04
PROVIDERS: ATTEND Nurse Practitioner Family
DX: R35.0 Frequency of micturition (principal)

== ENCOUNTER → 2024-12-05 | Outpatient (CLI) | payer MEDICARE ==
[2024-12-05 19:02] LABS: FREE T4 1.72 NG/DL (0.89-1.76); THYROID STIMULATING HORMONE 0.279 uIU/ML (0.55-4.78)
== END ==
LOC: M WUC 12:35
PROVIDERS: ATTEND Nurse Practitioner Family
DX: E89.0 Postprocedural hypothyroidism (principal)

== ENCOUNTER → 2024-12-05 | Outpatient (CLI) | payer MEDICARE ==
[2024-12-05 18:32] LABS: HEMATOCRIT 39.9 % (36.0-47.0); MEAN CORPUSCULAR HGB CONC 32.6 g/dl (32.0-36.5); MEAN CORPUSCULAR VOLUME 88.9 fl (80.0-96.0); PLATELET COUNT, AUTOMATED 211 10^3/uL (150-450); RED BLOOD COUNT 4.49 10^6/uL (4.00-5.40); WHITE BLOOD COUNT 5.9 10^3/uL (4.0-10.0)
[2024-12-05 19:00] LABS: ALBUMIN 3.9 G/DL (3.2-5.2); ALKALINE PHOSPHATASE 77 U/L (35-104); ALT/SGPT 11 U/L (7.0-40); AST/SGOT 9 U/L (<34); BILIRUBIN,TOTAL 0.7 MG/DL (0.3-1.2); BLOOD UREA NITROGEN 12 MG/DL (9-23); CALCIUM LEVEL 9.9 MG/DL (8.3-10.6); CARBON DIOXIDE LEVEL 30 MMOL/L (20-31); CHLORIDE LEVEL 102 MMOL/L (98-107); CHOLESTEROL LEVEL 200 MG/DL (<200); CHOLESTEROL RISK RATIO 2.84 (<5); CREATININE FOR GFR 0.82 MG/DL (0.55-1.30); GLOMERULAR FILTRATION RATE > 60.0 (>39); GLUCOSE, FASTING 97 MG/DL (74-106); HDL CHOLESTEROL 70.4 MG/DL (>40); LDL CHOLESTEROL 115.8 MG/DL (<100); MAGNESIUM LEVEL 1.9 MG/DL (1.8-2.4); NON-HDL-C 129.6 MG/DL; SODIUM LEVEL 141 MMOL/L (136-145); TOTAL PROTEIN 6.8 G/DL (5.7-8.2); TRIGLYCERIDES LEVEL 69 MG/DL (<150)
[2024-12-05 19:01] LABS: FERRITIN 39.1 NG/ML (7.3-270.7)
== END ==
LOC: M WUC 12:33
PROVIDERS: ATTEND Nurse Practitioner Adult Health
DX: E78.5 Hyperlipidemia, unspecified (principal); E89.0 Postprocedural hypothyroidism; D64.9 Anemia, unspecified

== ENCOUNTER → 2025-01-20 | Outpatient (CLI) | payer MEDICARE ==
[2025-01-20 14:13] LABS: THYROID STIMULATING HORMONE 0.362 uIU/ML (0.55-4.78)
[2025-01-20 14:15] LABS: FREE T4 1.61 NG/DL (0.89-1.76)
== END ==
LOC: M WUC 10:53
PROVIDERS: ATTEND Nurse Practitioner Family
DX: E89.0 Postprocedural hypothyroidism (principal)

== ENCOUNTER → 2025-07-01 | Outpatient (REF) | payer MEDICARE ==
[~2025-07-01] MED LIST changes: -EQL50TAB2 PO; +LIFI1DRO4; +MELA5TAB44 PO; -MELA5TAB7 PO; +VITA1TAB82 PO; -XIID5DRO
== END ==
LOC: M LAB REF 17:12
PROVIDERS: ATTEND Nurse Practitioner Family
DX: R30.0 Dysuria (principal)

== ENCOUNTER → 2025-07-23 | Outpatient (REF) | payer MEDICARE ==
[~2025-07-23] MED LIST changes: -IBUP-1022 PO; +IBUP600T42 PO
== END ==
LOC: M LAB REF 17:08
PROVIDERS: ATTEND Student in an Organized Health Care Education/Training Program
DX: R30.0 Dysuria (principal)

== ENCOUNTER → 2025-07-28 | Outpatient (CLI) | payer MEDICARE ==
[2025-07-28 18:44] LABS: FREE T4 1.46 NG/DL (0.89-1.76)
== END ==
LOC: M WUC 13:27
PROVIDERS: ATTEND Nurse Practitioner Family
DX: E89.0 Postprocedural hypothyroidism (principal)